=== PATIENT | male | born 1955 | race Caucasian/White ===

== ENCOUNTER → 2017-08-29 08:06 | Outpatient (CLI) | payer MEDICARE, MEDICAID, SELFPAY ==
[2017-08-29 08:35] LABS: Basophils % 0.5 % (0.1-2.0); Eosinophils # 0.2 K/mm3 (0.0-0.4); Eosinophils % 3.3 % (0.1-12.0); Hematocrit 37.9 % (42.0-52.0); Hemoglobin 12.8 g/dL (14.1-18.0); Lymphocytes # 1.7 K/mm3 (0.7-4.5); Lymphocytes % 33.1 K/mm3 (10-50); Mean Corpuscular HGB Conc 33.9 g/dL (31.8-35.4); Mean Corpuscular Hemoglobin 28.5 pg (27.0-31.2); Mean Corpuscular Volume 84.1 fl (80-94); Mean Platelet Volume 7.8 fl (7.4-10.4); Monocytes # 0.3 K/mm3 (0.1-1.0); Neutrophils % 57.1 % (37.0-80.0); Platelet Count 221 K/mm3 (142-424); Red Blood Count 4.51 M/mm3 (4.60-6.20); Red Cell Distribution Width 14.2 % (11.5-17.5); White Blood Count 5.3 K/mm3 (4.8-10.8)
[2017-08-29 09:37] LABS: Hemoglobin A1C 8.2 % (0.0-7.0)
[2017-08-29 10:21] LABS: Alanine Aminotransferase 56 U/L (12-78); Albumin Level 3.2 gm/dL (3.4-5.0); Albumin/Globulin Ratio 0.8 (1.1-1.8); Alkaline Phosphatase 71 U/L (46-116); Anion Gap 12.4 mEq/L (5-15); Aspartate Amino Transferase 60 U/L (15-37); Bilirubin,Total 0.4 mg/dL (0.2-1.0); Blood Urea Nitrogen 21 mg/dL (7-18); Calcium 9.7 mg/dL (8.5-10.1); Carbon Dioxide 29 mmol/L (21.0-32.0); Chloride 102 mmol/L (98-107); Chol/HDL Ratio 7.1 (1-3.5); Cholesterol 198 mg/dL (140-200); Creatinine,Serum 1.39 mg/dL (0.70-1.30); Estimated Glomerular Filt Rate 52 ml/min (>60); GFR (African American) 63 ML/MIN (>60); Globulin 4.2 gm/dl (1.3-3.2); Glucose 223 mg/dL (74-106); HDL Cholesterol 28 mg/dL (27-67); LDL Cholesterol 107 mg/dL (0-130); Potassium 4.4 mmoL/L (3.5-5.1); Sodium 139 mmol/L (136-145); Total Protein,Serum 7.4 gm/dL (6.4-8.2); Triglycerides 314 mg/dL (30-200); VLDL Cholesterol 63 mg/dL (0-40)
[2017-08-30 07:44] LABS: Vitamin D 25 Hydroxy 22.2 ng/mL (30.0-100.0)
== END ==
PROVIDERS: Visit Provider Nurse Practitioner Family
DX: E11.22 Type 2 diabetes mellitus with diabetic chronic kidney disease (principal); E78.5 Hyperlipidemia, unspecified; I10 Essential (primary) hypertension
CPT/HCPCS: 36415; 80053; 80061; 82652; 83036; 85025

== ENCOUNTER → 2017-08-30 08:19 | Outpatient (REF) | payer MEDICARE, MEDICAID, SELFPAY ==
[2017-08-31 09:26] LABS: Creatinine, Urine 48.9 mg/dL (Not Estab.); Microalbumin, Urine <3.0 ug/mL (Not Estab.)
== END ==
LOC: LAB 08:19
PROVIDERS: Visit Provider Nurse Practitioner Family
DX: E78.5 Hyperlipidemia, unspecified (principal); E11.22 Type 2 diabetes mellitus with diabetic chronic kidney disease; I10 Essential (primary) hypertension
CPT/HCPCS: 82043; 82570

== ENCOUNTER → 2017-11-03 11:57 | Outpatient (POV) | payer MEDICARE, MEDICAID, SELFPAY | PROVIDERS: Family Provider Nurse Practitioner Family; PCP Internal Medicine Adolescent Medicine; Visit Provider Podiatrist | DX: Z00.00 Encounter for general adult medical examination without abnormal findings (principal) ==

== ENCOUNTER → 2018-02-08 09:26 | Outpatient (POV) | payer MEDICARE, MEDICAID, SELFPAY | PROVIDERS: Visit Provider Podiatrist | DX: Z00.00 Encounter for general adult medical examination without abnormal findings (principal) ==

== ENCOUNTER → 2018-03-17 08:33 | Outpatient (CLI) | payer MEDICARE, MEDICAID, SELFPAY ==
[2018-03-17 09:15] LABS: Basophils # 0.1 K/mm3 (0-0.2); Eosinophils # 0.2 K/mm3 (0.0-0.4); Eosinophils % 3.2 % (0.1-12.0); Hematocrit 39.5 % (42.0-52.0); Hemoglobin 13.1 g/dL (14.1-18.0); Lymphocytes # 1.9 K/mm3 (0.7-4.5); Lymphocytes % 34.4 % (10-50); Mean Corpuscular HGB Conc 33.3 g/dL (31.8-35.4); Mean Corpuscular Hemoglobin 28.9 pg (27.0-31.2); Mean Platelet Volume 7.2 fl (7.4-10.4); Monocytes # 0.3 K/mm3 (0.1-1.0); Monocytes % 5.5 % (1.7-9.3); Neutrophils # 3.1 K/mm3 (1.8-7.8); Neutrophils % 55.9 % (37.0-80.0); Platelet Count 197 K/mm3 (142-424); Red Blood Count 4.54 M/mm3 (4.60-6.20); Red Cell Distribution Width 14.4 % (11.5-17.5); White Blood Count 5.5 K/mm3 (4.8-10.8)
[2018-03-17 10:03] LABS: Hemoglobin A1C 7.3 % (0.0-7.0)
[2018-03-17 10:32] LABS: Alanine Aminotransferase 60 U/L (12-78); Albumin Level 3.3 gm/dL (3.4-5.0); Albumin/Globulin Ratio 0.8 (1.1-1.8); Alkaline Phosphatase 50 U/L (46-116); Anion Gap 14.2 mEq/L (5-15); Aspartate Amino Transferase 66 U/L (15-37); Bilirubin,Total 0.5 mg/dL (0.2-1.0); Blood Urea Nitrogen 20 mg/dL (7-18); Calcium 9.3 mg/dL (8.5-10.1); Carbon Dioxide 27 mmol/L (21.0-32.0); Chloride 104 mmol/L (98-107); Chol/HDL Ratio 4.3 (1-3.5); Cholesterol 124 mg/dL (140-200); Creatinine,Serum 1.52 mg/dL (0.70-1.30); Estimated Glomerular Filt Rate 47 ml/min (>60); Ferritin 97 ng/mL (8-388); GFR (African American) 57 ML/MIN (>60); Globulin 4.1 gm/dl (1.3-3.2); Glucose 133 mg/dL (74-106); HDL Cholesterol 29 mg/dL (27-67); LDL Cholesterol 50 mg/dL (0-130); Potassium 4.2 mmoL/L (3.5-5.1); Sodium 141 mmol/L (136-145); Total Protein,Serum 7.4 gm/dL (6.4-8.2); Triglycerides 226 mg/dL (30-200); VLDL Cholesterol 45 mg/dL (0-40)
[2018-03-18 04:06] LABS: Creatinine, Urine 158.1 mg/dL (Not Estab.)
[2018-03-19 06:09] LABS: Folate 11.8 ng/mL (>3.0); Vitamin B12 808 pg/mL (232-1245)
[2018-03-19 14:00] LABS: Vitamin D 25 Hydroxy 26.4 ng/mL (30.0-100.0)
== END ==
PROVIDERS: Visit Provider Nurse Practitioner Family
DX: E11.22 Type 2 diabetes mellitus with diabetic chronic kidney disease (principal); D63.8 Anemia in other chronic diseases classified elsewhere; E55.9 Vitamin D deficiency, unspecified; E78.5 Hyperlipidemia, unspecified; Z79.4 Long term (current) use of insulin
CPT/HCPCS: 36415; 80053; 80061; 82043; 82570; 82607; 82652; 82728; 82746; 83036; 85025

== ENCOUNTER → 2019-03-11 13:16 | Outpatient (CLI) | payer MEDICARE, OTHER, SELFPAY ==
[2019-03-11 14:02] LABS: Basophils % 0.6 % (0.1-2.0); Eosinophils # 0.2 K/mm3 (0.0-0.4); Hematocrit 42.9 % (42.0-52.0); Hemoglobin 13.4 g/dL (14.1-18.0); Lymphocytes # 1.9 K/mm3 (0.7-4.5); Lymphocytes % 24.4 % (10-50); Mean Corpuscular HGB Conc 31.3 g/dL (31.8-35.4); Mean Corpuscular Hemoglobin 27.4 pg (27.0-31.2); Mean Corpuscular Volume 87.6 fl (80-94); Mean Platelet Volume 8.4 fl (7.4-10.4); Monocytes # 0.3 K/mm3 (0.1-1.0); Monocytes % 4.3 % (1.7-9.3); Neutrophils # 5.2 K/mm3 (1.8-7.8); Neutrophils % 67.7 % (37.0-80.0); Platelet Count 247 K/mm3 (142-424); Red Blood Count 4.89 M/mm3 (4.60-6.20); Red Cell Distribution Width 14.3 % (11.5-17.5); White Blood Count 7.7 K/mm3 (4.8-10.8)
[2019-03-11 15:19] LABS: Hemoglobin A1C 6.7 % (0.0-7.0)
[2019-03-11 15:20] LABS: Alanine Aminotransferase 39 U/L (12-78); Albumin Level 3.2 gm/dL (3.4-5.0); Albumin/Globulin Ratio 0.8 (1.1-1.8); Alkaline Phosphatase 43 U/L (46-116); Anion Gap 12.1 mEq/L (5-15); Aspartate Amino Transferase 45 U/L (15-37); Bilirubin,Total 0.4 mg/dL (0.2-1.0); Blood Urea Nitrogen 14 mg/dL (7-18); Calcium 8.9 mg/dL (8.5-10.1); Carbon Dioxide 28 mmol/L (21.0-32.0); Chloride 104 mmol/L (98-107); Cholesterol 137 mg/dL (140-200); Estimated Glomerular Filt Rate 56 ml/min (>60); GFR (African American) 67 ML/MIN (>60); Globulin 3.9 gm/dl (1.3-3.2); Glucose 54 mg/dL (74-106); HDL Cholesterol 34 mg/dL (27-67); LDL Cholesterol 69 mg/dL (0-130); Potassium 4.1 mmoL/L (3.5-5.1); Prostate Specific Ag Screen 0.6 ng/mL (0.0-4.0); Sodium 140 mmol/L (136-145); Total Protein,Serum 7.1 gm/dL (6.4-8.2); Triglycerides 172 mg/dL (30-200); VLDL Cholesterol 34 mg/dL (0-40)
[2019-03-12 10:32] LABS: Vitamin D 25 Hydroxy 25.6 ng/mL (30.0-100.0)
[2019-03-12 11:07] LABS: Creatinine, Urine 85.9 mg/dL (Not Estab.); Microalbumin, Urine 17.5 ug/mL (Not Estab.)
== END ==
PROVIDERS: PCP Nurse Practitioner Family; Visit Provider Nurse Practitioner Family
DX: Z12.5 Encounter for screening for malignant neoplasm of prostate (principal); N40.0 Benign prostatic hyperplasia without lower urinary tract symptoms; E11.22 Type 2 diabetes mellitus with diabetic chronic kidney disease; E78.5 Hyperlipidemia, unspecified; N18.3 Chronic kidney disease, stage 3 (moderate); E55.9 Vitamin D deficiency, unspecified; I12.9 Hypertensive chronic kidney disease with stage 1 through stage 4 chronic kidney disease, or unspecified chronic kidney disease; Z79.4 Long term (current) use of insulin
CPT/HCPCS: 36415; 80053; 80061; 82043; 82570; 82652; 83036; 85025; G0103

== ENCOUNTER → 2019-12-07 12:44 | Outpatient (CLI) | payer MEDICARE, OTHER, SELFPAY ==
[2019-12-07 13:13] LABS: Basophils # 0.1 K/mm3 (0-0.2); Basophils % 0.7 % (0.1-2.0); Eosinophils # 0.3 K/mm3 (0.0-0.4); Eosinophils % 4.5 % (0.1-12.0); Hematocrit 39.8 % (42.0-52.0); Hemoglobin 14.1 g/dL (14.1-18.0); Lymphocytes % 27.3 % (10-50); Mean Corpuscular HGB Conc 35.3 g/dL (31.8-35.4); Mean Corpuscular Hemoglobin 29.7 pg (27.0-31.2); Mean Corpuscular Volume 84.1 fl (80-94); Mean Platelet Volume 7.9 fl (7.4-10.4); Monocytes # 0.4 K/mm3 (0.1-1.0); Monocytes % 5.9 % (1.7-9.3); Neutrophils # 4.6 K/mm3 (1.8-7.8); Neutrophils % 61.6 % (37.0-80.0); Platelet Count 208 K/mm3 (142-424); Red Blood Count 4.74 M/mm3 (4.60-6.20); Red Cell Distribution Width 14.5 % (11.5-17.5); White Blood Count 7.4 K/mm3 (4.8-10.8)
[2019-12-07 13:48] LABS: Alanine Aminotransferase 39 U/L (12-78); Albumin Level 3.9 g/dl (3.5-5.0); Albumin/Globulin Ratio 1.1 (1.1-1.8); Alkaline Phosphatase 81 U/L (38-126); Anion Gap 15.1 mEq/L (5-15); Aspartate Amino Transferase 49 U/L (17-59); Bilirubin,Total 0.5 mg/dl (0.2-1.3); Blood Urea Nitrogen 26 mg/dl (9-20); Calcium 9.7 mg/dl (8.4-10.2); Carbon Dioxide 30 mmol/L (22.0-30.0); Chloride 97 mmol/L (98-107); Estimated Glomerular Filt Rate 44 ml/min (>60); GFR (African American) 53 ML/MIN (>60); Globulin 3.5 g/dL (1.3-3.2); Glucose 288 mg/dl (74-100); Potassium 5.1 mmoL/L (3.5-5.1); Sodium 137 mmol/L (136-145); Total Protein,Serum 7.4 g/dl (6.3-8.2)
[2019-12-07 14:05] LABS: 25-OH Vitamin D, Total 32.8 ng/mL (30-100)
[2019-12-07 14:26] LABS: Hemoglobin A1C 9.1 % (4.0-6.0)
[2019-12-07 14:26] LABS: Creatinine,Urine Random 61 mg/dL (Not Estab.); Microalbumin/Creatinine Ratio 36.8
== END ==
PROVIDERS: Visit Provider Nurse Practitioner Family
DX: E11.22 Type 2 diabetes mellitus with diabetic chronic kidney disease (principal); N18.3 Chronic kidney disease, stage 3 (moderate); E55.9 Vitamin D deficiency, unspecified
CPT/HCPCS: 36415; 80053; 82043; 82306; 82570; 83036; 85025

== ENCOUNTER → 2020-06-27 08:52 | Outpatient (CLI) | payer MEDICARE, OTHER, SELFPAY ==
[2020-06-27 10:26] LABS: Hemoglobin A1C 6.5 % (4.0-6.0)
[2020-06-27 13:47] LABS: Alanine Aminotransferase 31 U/L (12-78); Albumin Level 3.9 g/dl (3.5-5.0); Albumin/Globulin Ratio 1.2 (1.1-1.8); Alkaline Phosphatase 62 U/L (38-126); Anion Gap 12.9 mEq/L (5-15); Aspartate Amino Transferase 47 U/L (17-59); Bilirubin,Total 0.4 mg/dl (0.2-1.3); Blood Urea Nitrogen 25 mg/dl (9-20); Calcium 9.6 mg/dl (8.4-10.2); Carbon Dioxide 26 mmol/L (22.0-30.0); Chloride 105 mmol/L (98-107); Chol/HDL Ratio 4.6 (1-3.5); Cholesterol 123 mg/dl (140-200); Estimated Glomerular Filt Rate 44 ml/min (>60); GFR (African American) 53 ML/MIN (>60); Globulin 3.3 g/dL (1.3-3.2); Glucose 184 mg/dl (74-100); HDL Cholesterol 27 mg/dl (40-60); Potassium 4.9 mmoL/L (3.5-5.1); Sodium 139 mmol/L (136-145); Total Protein,Serum 7.2 g/dl (6.3-8.2); Triglycerides 327 mg/dl (30-150); VLDL Cholesterol 65 mg/dL (0-40)
[2020-06-27 13:58] LABS: Direct LDL Cholesterol 47.48 mg/dL (100-129)
[2020-06-27 14:17] LABS: Prostate Specific Ag Screen 0.3 ng/ml (0.0-4.0)
== END ==
PROVIDERS: Visit Provider Nurse Practitioner Family
DX: E11.22 Type 2 diabetes mellitus with diabetic chronic kidney disease (principal); I10 Essential (primary) hypertension; N40.0 Benign prostatic hyperplasia without lower urinary tract symptoms; Z12.5 Encounter for screening for malignant neoplasm of prostate; Z79.4 Long term (current) use of insulin
CPT/HCPCS: 36415; 80053; 80061; 83036; G0103

== ENCOUNTER → 2020-09-11 16:14 | Outpatient (CLI) | payer MEDICARE, OTHER, SELFPAY ==
[2020-09-11 16:25] LABS: Microscopic, Urine URINE MICROSCOPIC (MICROSCOPIC)
[2020-09-11 17:07] LABS: Appearance,Urine CLEAR (Clear); Blood, Urine 1+ (Negative); Color,Urine YELLOW (Yellow); Glucose,Urine (UA) Negative (Negative); Ketones,Urine Negative (Negative); Leukocyte Esterase,Urine 2+ (Negative); Nitrate,Urine Negative (Negative); PH,Urine 5.5 (5.0-8.5); Protein,Urine 2+ (Negative)
[2020-09-11 17:09] LABS: Bilirubin,Urine 1+ (Negative)
[2020-09-11 17:12] LABS: Bacteria,Urine 1+ /lpf; Squamous Epithelial Cell,Urine Occasional #/hpf (0-5); WBC,Urine 20-50 #/hpf (0-3)
== END ==
PROVIDERS: Visit Provider Nurse Practitioner Family
DX: N39.0 Urinary tract infection, site not specified (principal)
CPT/HCPCS: 81001; 87086; 87088; 87186

== ENCOUNTER 2020-09-13 14:48 | Inpatient (IN) | payer MEDICARE, OTHER, SELFPAY ==
[2020-09-13] VITALS (17 sets, daily range): BP systolic 108–145; BP diastolic 56–94; PULSE 68–77; RESP 16–22; TEMP 36.6–36.7; O2SAT 90–99; BMI 64.6; BMI 62.6
--- NOTE | 2020-09-13 15:17 | HMH.EDGENADL ---
ED Disposition Clinical Impression: Visual hallucinations UTI (urinary tract infection) Qualifiers: Urinary tract infection type: site unspecified Hematuria presence: without hematuria Qualified Code(s): N39.0 - Urinary tract infection, site not specified CHF (congestive heart failure) Qualifiers: Heart failure type: unspecified Heart failure chronicity: acute on chronic Qualified Code(s): I50.9 - Heart failure, unspecified Pneumonia Qualifiers: Pneumonia type: due to unspecified organism Laterality: unspecified laterality Lung location: unspecified part of lung Qualified Code(s): J18.9 - Pneumonia, unspecified organism Respiratory failure with hypoxia Qualifiers: Chronicity: acute Qualified Code(s): J96.01 - Acute respiratory failure with hypoxia Disposition: Admitted As Inpatient Condition on Discharge: Serious Referrals: Marge Brownlee APRN [Primary Care Provider] - - Critical Care Critical Care Time: No Attestation: On 09/13/20, the high probability of a clinically significant, sudden or life threatening deterioration of the following system(s) required my full and direct attention, intervention and personal management. The time I documented below is in addition to time spent performing reported procedures but includes the following listed in this critical care notation. Medical Decision Making - Medical Records Medical records reviewed: Yes: I reviewed the patient's medical records. MR Comment: Reviewed prior left heart cath and echocardiogram results, see below - Jamal Inquiry Pt receiving controlled substance: No Vital Signs: 09/13/20 14:49 09/13/20 15:01 09/13/20 15:31 Temperature 97.9 F Temperature Source Oral Pulse Rate 71 71 Pulse Rate [Left] 71 Respiratory Rate 20 20 22 Blood Pressure 127/60 141/61 H Blood Pressure [Right Arm] 128/56 L Blood Pressure Mean 69 87 Blood Pressure Mean [Right Arm] 80 Blood Pressure Source [Right Arm] Automatic Cuff Blood Pressure Position [Right Arm] Supine 02 Sat by Pulse Oximetry 94 L 94 L 99 Oxygen Delivery Method Nasal Cannula Oxygen Flow Rate (LPM) 4 09/13/20 16:27 09/13/20 16:32 09/13/20 16:35 Temperature Temperature Source Pulse Rate 70 71 70 Pulse Rate [Left] Respiratory Rate 20 18 Blood Pressure 130/65 108/77 L Blood Pressure [Right Arm] Blood Pressure Mean 86 83 Blood Pressure Mean [Right Arm] Blood Pressure Source [Right Arm] Blood Pressure Position [Right Arm] 02 Sat by Pulse Oximetry 98 96 Oxygen Delivery Method Oxygen Flow Rate (LPM) 09/13/20 17:01 Temperature Temperature Source Pulse Rate 70 Pulse Rate [Left] Respiratory Rate 18 Blood Pressure 114/59 L Blood Pressure [Right Arm] Blood Pressure Mean 77 Blood Pressure Mean [Right Arm] Blood Pressure Source [Right Arm] Blood Pressure Position [Right Arm] 02 Sat by Pulse Oximetry 94 L Oxygen Delivery Method Oxygen Flow Rate (LPM) - Lab Data Lab Results 09/13/20 14:10: NT-Pro-B Natriuret Pep 3250 H 09/13/20 14:50: WBC 14.4 H, RBC 3.74 L, Hgb 10.5 L, Hct 32.0 L, MCV 85.5, MCH 28.1, MCHC 32.9, RDW 14.7, Plt Count 262, MPV 8.6, Neut % (Auto) 87.4 H, Lymph % (Auto) 7.2 L, [place] % (Auto) 4.6, Eos % (Auto) 0.4, Baso % (Auto) 0.2, Neut # (Auto) 12.6 H, Lymph # (Auto) 1.1, [place]ill # (Auto) 0.7, Eos # (Auto) 0.1, Baso # (Auto) 0.0, Total Counted 100, Neutrophils % (Manual) 85 H, Lymphocytes % (Manual) 12, Monocytes % (Manual) 3, Platelet Estimate Normal, RBC Morphology Normal 09/13/20 14:50: Sodium 130 L, Potassium 4.9, Chloride 94 L, Carbon Dioxide 27, Anion Gap 13.9, BUN 65 H, Creatinine 2.10 H, Estimated Creat Clear 34, Estimated GFR 32 L, Est GFR ( Amer) 39 L, Glucose 380 H, Calcium 8.8, Total Bilirubin 1.1, AST 31, ALT 17, Alkaline Phosphatase 81, Troponin I 0.01, Total Protein 7.6, Albumin 3.6, Globulin 4.0 H, Albumin/Globulin Ratio 0.9 L 09/13/20 15:28: Specimen Source Right radial, O2 % 4l, ABG pH 7.37, ABG pCO2
--- NOTE | 2020-09-13 15:27 | XR_ITS ---
PROCEDURE INFORMATION: Exam: XR Chest Exam date and time: 09/13/2020 3:27 PM Age: 64 years old Clinical indication: Shortness of breath; Patient HX: SOA, hallucinations. Morbid obesity. Best images possible TECHNIQUE: Imaging protocol: XR of the chest. Views: 1 view. COMPARISON: CR CXR CHEST(2 VIEWS-NOT PORTABLE) 06/25/2016 12:29 PM FINDINGS: Lungs: Mild opacities in the mid lung regions and both bases may represent atelectasis or pneumonia. Pleural spaces: Unremarkable. No pleural effusion. No pneumothorax. Heart/Mediastinum: Cardiomegaly and vascular prominence may represent interstitial edema or or mild congestive heart failure.. Bones/joints: Unremarkable. IMPRESSION: 1. Cardiomegaly and vascular prominence may represent interstitial edema or or mild congestive heart failure.. 2. Mild opacities in the mid lung regions and both bases may represent atelectasis or pneumonia.
--- NOTE | 2020-09-13 15:28 | CT_ITS ---
PROCEDURE INFORMATION: Exam: CT Head Without Contrast Exam date and time: 09/13/2020 3:28 PM Age: 64 years old Clinical indication: Altered mental status/memory loss; Other: Altered mental status, confusion; Patient HX: Very large patient with confusion. Bedfast. ; Additional info: AMS TECHNIQUE: Imaging protocol: Computed tomography of the head without contrast. 3D rendering (Not supervised by radiologist): MIP and/or 3D reconstructed images were created by the technologist. Radiation optimization: All CT scans at this facility use at least one of these dose optimization techniques: automated exposure control; mA and/or kV adjustment per patient size (includes targeted exams where dose is matched to clinical indication); or iterative reconstruction. COMPARISON: No relevant prior studies available. FINDINGS: Brain: No acute intracranial hemorrhage.. There is mild diffuse heterogeneity of the white matter attenuation, consistent with chronic white matter ischemic changes. Mild cerebral atrophy Cerebral ventricles: No ventriculomegaly. Paranasal sinuses: Opacities in the maxillary sinuses and ethmoid sinuses Mastoid air cells: Visualized mastoid air cells are well aerated. Orbital cavity: Prosthesis for the left globe Bones/joints: Unremarkable. No acute fracture. Soft tissues: Unremarkable. IMPRESSION: No acute intracranial hemorrhage..
[2020-09-13 15:38] LABS: Basophils % 0.2 % (0.1-2.0); Eosinophils # 0.1 K/mm3 (0.0-0.4); Eosinophils % 0.4 % (0.1-12.0); Hemoglobin 10.5 g/dL (14.1-18.0); Lymphocytes # 1.1 K/mm3 (0.7-4.5); Lymphocytes % 7.2 % (10-50); Mean Corpuscular HGB Conc 32.9 g/dL (31.8-35.4); Mean Corpuscular Hemoglobin 28.1 pg (27.0-31.2); Mean Corpuscular Volume 85.5 fl (80-94); Mean Platelet Volume 8.6 fl (7.4-10.4); Monocytes # 0.7 K/mm3 (0.1-1.0); Monocytes % 4.6 % (1.7-9.3); Neutrophils # 12.6 K/mm3 (1.8-7.8); Neutrophils % 87.4 % (37.0-80.0); Platelet Count 262 K/mm3 (142-424); Red Blood Count 3.74 M/mm3 (4.60-6.20); Red Cell Distribution Width 14.7 % (11.5-17.5); White Blood Count 14.4 K/mm3 (4.8-10.8)
[2020-09-13 15:40] LABS: MANUAL DIFFERENTIAL MANUAL DIFFERENTIAL (MANUAL DIFF)
[2020-09-13 15:42] LABS: Alanine Aminotransferase 17 U/L (12-78); Albumin Level 3.6 g/dl (3.5-5.0); Albumin/Globulin Ratio 0.9 (1.1-1.8); Alkaline Phosphatase 81 U/L (38-126); Anion Gap 13.9 mEq/L (5-15); Aspartate Amino Transferase 31 U/L (17-59); Bilirubin,Total 1.1 mg/dl (0.2-1.3); Blood Urea Nitrogen 65 mg/dl (9-20); Calcium 8.8 mg/dl (8.4-10.2); Carbon Dioxide 27 mmol/L (22.0-30.0); Chloride 94 mmol/L (98-107); Creatinine Clearance Estimated 34 mL/min (50-200); Estimated Glomerular Filt Rate 32 ml/min (>60); GFR (African American) 39 ML/MIN (>60); Glucose 380 mg/dl (74-100); Potassium 4.9 mmoL/L (3.5-5.1); Sodium 130 mmol/L (136-145); Total Protein,Serum 7.6 g/dl (6.3-8.2)
[2020-09-13 16:07] LABS: Troponin I 0.01 ng/ml (0.00-0.034)
[2020-09-13 16:15] LABS: Lymphocytes % 12 % (10-50); Monocytes % 3 % (2-9); Neutrophils % 85 % (42-76); Platelet Estimate Normal; RBC Morphology Normal; Total Cells Counted 100
[2020-09-13 16:21] LABS: ABG Base Excess 0.2 mmol/L (-2.4-2.3); ABG HCO3 25.5 mmhg (22.0-26.0); ABG Oxygen Saturation 93 % (90-100); ABG PCO2 45.7 mmhg (35.0-45.0); ABG PH 7.37 mmol/L (7.35-7.45); ABG PO2 68.9 mmhg (80-100); ABG TCO2 26.9 mmhg (23-27)
[2020-09-13 16:22] LABS: Allen's Test Acceptable; Oxygen 4L %; Source Right Radial
--- NOTE | 2020-09-13 17:05 | ECG_ITS ---
APPROVED REPORT Exam: Resting ECG HR:66 bpm ECG Measurements Heart Rate 66 AXES NC 144 P 55 QRSd 108 QRS -13 QT 440 T 71 QTc 461 Conclusion Normal sinus rhythm Nonspecific ST abnormality Abnormal ECG Electronically signed by : Scott Camarillo, 09/15/2020 22:04:48
[2020-09-13 17:33] LABS: NT Pro Brain Natriuretic Pep. 3250 pg/mL (0-125)
[2020-09-13 17:34] LABS: Microscopic, Urine URINE MICROSCOPIC (MICROSCOPIC)
[2020-09-13 17:42] LABS: Appearance,Urine CLEAR (Clear); Bilirubin,Urine Negative (Negative); Blood, Urine Negative (Negative); Color,Urine YELLOW (Yellow); Glucose,Urine (UA) 2+ (Negative); Ketones,Urine Negative (Negative); Leukocyte Esterase,Urine Negative (Negative); Nitrate,Urine Negative (Negative); PH,Urine 5.5 (5.0-8.5); Protein,Urine TRACE (Negative)
[2020-09-13 17:48] LABS: Amorphous Sediment,Urine 2+ /lpf; Squamous Epithelial Cell,Urine Occasional #/hpf (0-5); WBC,Urine Occasional #/hpf (0-3)
--- NOTE | 2020-09-13 18:19 | PC.NURSE ---
called lab to check on time left for covid swab. gadiel from lab estimated time left 45 min
[2020-09-13 19:51] LABS: Troponin I 0.01 ng/ml (0.00-0.034)
--- NOTE | 2020-09-13 20:24 | PC.NURSE ---
PT ARRIVED TO FLOOR VIA STRETCHER FROM ED W/STAFF AT 2023
[2020-09-13 21:14] LABS: POC Glucose,Bedside 335 (70-110)
[2020-09-13 22:20] LABS: Troponin I < 0.01 ng/ml (0.00-0.034)
[2020-09-14] VITALS (10 sets, daily range): BP systolic 105–153; BP diastolic 58–71; PULSE 60–71; RESP 18–24; TEMP 36.6–36.9; O2SAT 80–94; BMI 62.4
--- NOTE | 2020-09-14 00:25 | PC.NURSE ---
Report received from Nando Brown RN
--- NOTE | 2020-09-14 01:49 | PC.NURSE ---
Attempted to titrate O2 NC down. At 5 L O2 NC. Pt sats were 90%. Notified RT. RT placed venti mask @ 40%. Sats currently 90%. MD Camarillo consulted for further orders. New orders received. After 1 Hr on Vent, obtain ABG. If CO2 is greater than 50, wean O2 to 2L NC for sats of 85%.
[2020-09-14 02:34] LABS: ABG Base Excess 1.8 mmol/L (-2.4-2.3); ABG HCO3 26.9 mmhg (22.0-26.0); ABG Oxygen Saturation 92 % (90-100); ABG PCO2 46.1 mmhg (35.0-45.0); ABG PH 7.38 mmol/L (7.35-7.45); ABG TCO2 28.3 mmhg (23-27)
[2020-09-14 02:35] LABS: Allen's Test Y; Oxygen 40 %; Source R/R
--- NOTE | 2020-09-14 04:29 | PC.NURSE ---
No acute changes at this time. Pt has c/o discomfort in bed. Pt repositioned with assist x4. F/C draining to bedside with beena urine. Pt remains on 40% venti mask. VSS at this time. Will continue to monitor.
[2020-09-14 06:06] LABS: POC Glucose,Bedside 293 (70-110)
--- NOTE | 2020-09-14 07:07 | P.CONPHA_ITS ---
[facility] Pharmacy VTE Monitoring - Patient Demographics Admission date: 09/13/20 Report Date: 09/14/20 Time: 07:07 Allergies/Adverse Reactions: Patient Allergies gemfibrozil Allergy (Intermediate, Verified 11/22/18 08:22) I-RASH, NAUSEA, HIVES Height: 1.73 m Weight: 186.7 kg Patient Problems: Current Active Problems UTI (urinary tract infection) (Acute) CHF (congestive heart failure) (Acute) Pneumonia (Acute) Respiratory failure with hypoxia (Acute) Visual hallucinations (Acute) - VTE Risk Labs: VTE Related Lab Results Hgb 10.5 g/dL (14.1-18.0) L 09/13/20 14:50 Hct 32.0 % (42.0-52.0) L 09/13/20 14:50 Plt Count 262 K/mm3 (142-424) 09/13/20 14:50 BUN 65 mg/dl (9-20) H 09/13/20 14:50 Creatinine 2.10 mg/dl (0.66-1.25) H 09/13/20 14:50 Estimated Creat Clear 34 mL/min (50-200) 09/13/20 14:50 Was VTE Risk Assessment Performed: Yes VTE Score: 8 VTE Risk Level: Moderate Risk - Prophylaxis VTE Prophylaxis Ordered?: Yes Types of VTE Prophylaxis: TEDS Knee High Location of Applied Device: Bilateral Lower Extremeties
--- NOTE | 2020-09-14 08:01 | HMH.HP ---
*Admission Date: 09/13/20 *Chief complaint: Weakness/mental status changes *History of present illness: 64-year-old white male who suffers from super?morbid obesity with a BMI of greater than 60, who was recently placed on Cipro for UTI recently. Over the last 24 hours, after about 3 days of Cipro he has become increasingly weak, unable to move himself around at home and also has had episodes of hallucinations and confusion. Came to the emergency department where he was found to have clinical and laboratory evidence of CHF with elevated BNP, wheezing and crackles in his lungs and also be significantly weak and unable to move under his own power out of the bed. Admitted to hospital for IV antibiotics, as his chest x-ray showed infiltrates and the initial thought was Cipro might be causing his hallucinations as there are case reports in the literature about this. He was also admitted for diuresis, further evaluation of CHF issues. [facility] History I have reviewed the patient's past medical history: Yes Medical History: Reports:: Congestive Heart Failure, Chronic Obstructive Pulmonary Disease (COPD), Coronary Artery Disease, Diabetes Mellitus Type 2, Hyperlipidemia, Hypertension, Lung Disease Denies:: Cancer, Diabetes Mellitus Type 1, Internal Pacemaker, MRSA, Seizures *Have you ever received a pneumonia vaccine?: Yes *Have you received a flu vaccine this season?: No Other Medical History: Reports: Arthritis. Denies: Blood Transfusion Reaction Laterality Cases: Bilateral: Other Other Surgeries: Yes: Colonoscopy, Other. No: Pacemaker - *Social History Smoking Status: Former smoker Tobacco Type: cigarettes # Packs/Day (cigarettes): 1 #Yrs smoked (if former smoker): 35 Smoking End Date: about a month ago. Alcohol Intake: never Alcohol Intake Frequency:: holidays/special occasions only *Occupational Status:: unemployed Household Members: family *Travel in the last 8 weeks: None Family Hx:: Cancer, Diabetes, Hyperlipidemia, Hypertension Review of Systems - Review of Systems Review of systems:: pertinent systems reviewed and negative unless documented below Patient feels better than yesterday. Continues to be very weak. reports no hallucinations. Dyspnea with exertion noted. No baseline shortness of air. GI and review of systems negative although patient wishes Singh catheter to be removed. - *Neurologic Reports confusion, Reports weakness, Denies headache(s) Meds Home Medications Medication Instructions Recorded Confirmed Type amlodipine 10 mg tablet 10 mg PO DAILY 09/26/17 09/14/20 History carvedilol 25 mg tablet 25 mg PO BID 09/26/17 09/13/20 History fenofibrate nanocrystallized 145 145 mg PO DAILY 09/26/17 09/14/20 History mg tablet loratadine 10 mg capsule 10 mg PO DAILY 09/26/17 09/14/20 History omeprazole 40 mg capsule,delayed 40 mg PO DAILY 09/26/17 09/14/20 History release rosuvastatin 40 mg tablet 40 mg PO DAILY 09/26/17 09/14/20 History spironolactone 25 mg tablet 25 mg PO BID 09/26/17 09/13/20 History tamsulosin 0.4 mg capsule 0.4 mg PO DAILY 09/26/17 09/14/20 History dulaglutide 1.5 mg/0.5 mL 1.5 mg SQ WEEKLY 11/22/18 09/14/20 History subcutaneous pen injector Albuterol Sulfate [Proair Hfa] 8.5 gm IH Q6H PRN 09/13/20 09/13/20 History Cholecalciferol (Vitamin D3) 1,000 unit PO DAILY 09/13/20 09/13/20 History [Vitamin D3 1,000 Unit Tab] Ciprofloxacin HCl [Ciprofloxacin 250 mg PO BID 09/13/20 09/13/20 History 250mg Tab] Cyanocobalamin (Vitamin B-12) 1,000 mcg PO DAILY 09/13/20 09/13/20 History [Vitamin B-12] Fluticasone/Umeclidin/Vilanter 1 each IH DAILY 09/13/20 09/13/20 History [Trelegy Ellipta 100-62.5-25] Furosemide [Lasix 40mg tab] 40 mg PO BID 09/13/20 09/13/20 History Insulin NPH Hum/Reg Insulin Hm 145 unit SQ BID 09/13/20 09/13/20 History [Humulin 70/30 Insulin 100 Units/mL 10mL Vial] [place]-3 Acid Ethyl Esters [Lovaza] 2 gm PO BID 09/13/20 09/13/20 History All
[2020-09-14 09:01] LABS: Basophils # 0.2 K/mm3 (0-0.2); Basophils % 1.6 % (0.1-2.0); Eosinophils # 0.1 K/mm3 (0.0-0.4); Eosinophils % 0.7 % (0.1-12.0); Hematocrit 26.2 % (42.0-52.0); Hemoglobin 10.5 g/dL (14.1-18.0); Lymphocytes # 1.4 K/mm3 (0.7-4.5); Lymphocytes % 10.3 % (10-50); Mean Corpuscular Hemoglobin 28.5 pg (27.0-31.2); Mean Platelet Volume 17.6 fl (7.4-10.4); Monocytes # 0.8 K/mm3 (0.1-1.0); Neutrophils # 10.8 K/mm3 (1.8-7.8); Neutrophils % 81.4 % (37.0-80.0); Platelet Count 158 K/mm3 (142-424); Red Blood Count 3.69 M/mm3 (4.60-6.20); White Blood Count 13.3 K/mm3 (4.8-10.8)
[2020-09-14 09:02] LABS: Red Cell Distribution Width 15.4 % (11.5-17.5)
[2020-09-14 09:03] LABS: Chloride 94 mmol/L (98-107); Sodium 132 mmol/L (136-145)
[2020-09-14 09:04] LABS: Potassium 4.4 mmoL/L (3.5-5.1)
[2020-09-14 09:07] LABS: Anion Gap 11.4 mEq/L (5-15); Blood Urea Nitrogen 60 mg/dl (9-20); Calcium 8.7 mg/dl (8.4-10.2); Carbon Dioxide 31 mmol/L (22.0-30.0); Creatinine Clearance Estimated 33 mL/min (50-200); Estimated Glomerular Filt Rate 30 ml/min (>60); GFR (African American) 37 ML/MIN (>60); Glucose 298 mg/dl (74-100)
--- NOTE | 2020-09-14 10:37 | HMH.PTEV ---
Physical Therapy Evaluation Rehab PT IP Evaluation Start: 09/14/20 08:00 Freq: ONCE Status: Active Protocol: Document 09/14/20 10:32 [place] (Rec: 09/14/20 10:37 KM [id number]) Subjective/History History History 64-year-old white male who suffers from super?morbid obesity with a BMI of greater than 60, who was recently placed on Cipro for UTI recently. Over the last 24 hours, after about 3 days of Cipro he has become increasingly weak, unable to move himself around at home and also has had episodes of hallucinations and confusion. - copied from H&P Subjective Subjective Pt reports he is SOA and feels very weak - at first pt did not wish to participate but encouragement from prompted pt to participate - pt's reports pt use elctric mobility device at home and was only transferring as ambulation Rehab PT IP Eval Objective Appearance Patient Behavior Appropriate,Fatigued Patient Orientation Person,Place,Time Difficulty following instructions none Speech Pattern Appropriate Ambulation Patient Able to Ambulate No Balance Ability to Arise Unable Sitting Balance Leans or slides in chair Dynamic Sitting Balance Ability Fair Transfers Bed Transfer Ability Moderate x 2 (50% assist) Rehab PT IP prob,goals,plan Problems Date of Evaluation: 09/14/20 PT IP Problems Bed Mobility,Transfers,Gait, Self care,Safety Rehab Potential Rehab Potential Poor Equipment Needs Assistive Devices Standard Walker,Wheelchair Plan PT Intervention Plan Bed Mobility,Transfers,Gait, Therapeutic Exercise PT Plan Frequency BID Duration LOS Discharge Goals Bed Transfer Ability Moderate x 2 (50% assist) Discharge Plan PT Discharge Plan Pt will need skilled therapy to allow return to OF of transfers, minimal ambulation and improved self care G -code Required Yes Eval Complexity Eval Charge Codes
--- NOTE | 2020-09-14 11:00 | HMH.OTEV ---
OT Inpatient Evaluation Rehab OT IP Evaluation Start: 09/14/20 08:00 Freq: ONCE Status: Complete Protocol: Document 09/14/20 10:54 [place] (Rec: 09/14/20 10:59 [place] [id number]) Rehab OT IP Assessment Subjective History Pt oriented x 3 on arrival. Pt agreeable to engage in therapy evaluation. Pt was admitted via ED on 09/13/20 due to visual halucinations and weakness. Pt has a past medical history of CHF, COPD, CAD, DM Type 2, Hyperlipdemia, HTN, and lung disease. Pt reports prior to hosptial admission he lived at home with his . Pt was able to make small transfers from surface to surface or surface to wheelchair. Pt claims he required assistance with dressing and showering. Pt was dependent upon for all IADLs. Subjective I don't know if I can do it. Objective Patient Orientation Person,Place,Birthday Upper Extremity Gross ROM WFL Bed Mobility bed mobility-scooting,bed mobility - supine/sit,bed mobility - rolling Assist Level Moderate x 2 (50% assist) Rehab OT IP prob,goals,plan Problems Date of Evaluation: 09/14/20 OT IP Problems Bed Mobility,Transfers,Gait, Balance,Self care,Safety Rehab Potential Rehab Potential Good Equipment Needs Assistive Devices Rolling / Wheeled Walker Plan OT intervention Plan Bed Mobility,Transfers,Gait, Balance,Self care,Safety, Therapeutic Exercise OT Plan Frequency BID Duration LOS Discharge Goals Bed Mobility Ability Assistance x1 Sit to Stand Chair Transfer Ability Minimal x 2 (25% assist) Chair Transfer Ability Minimal x 2 (25% assist) Chair Transfer Technique Sit to/from Ambulatory Chair Transfer Assistive Devices Rolling Walker Feeding Ability Assist with Tray Set Up Lower Body Dressing Ability Assistance X1 Upper Body Dressing Ability Assistance X1 Bathing Ability Assistance x1 Performing Toilet Hygiene Ability Assistance X1 Overall Commode/Toilet Transfer Ability Assistance x1 Commode/Toilet Transfer Technique Sit to/from Am
--- NOTE | 2020-09-14 11:01 | HMH.PHAINT ---
MEDICATION RECONCILIATION COMPLETED ON PATIENT USING EXTERNAL FILL HISTORY FROM PHARMACY AND PATIENT INTERVIEW RE:LAS[facility]. PATIENT STATES HE ONLY TAKES NEEDED FOR EDEMA. -ANNIE SALMERON, PHARMD
[2020-09-14 12:22] LABS: POC Glucose,Bedside 306 (70-110)
[2020-09-14 17:04] LABS: POC Glucose,Bedside 271 (70-110)
--- NOTE | 2020-09-14 19:28 | PC.NURSE ---
PT IS RESTING IN BED WITH FAMILY IN THE ROOM. PT STATES HE FEELS MUCH BETTER SINCE THE CATHETER WAS REMOVED. PT HAS BEEN USING THE URINAL TO VOID BUT HAS NEEDED ASSISTANCE. PT ATTEMPTED TO WORK WITH PHYSICAL THERAPY BUT BECAME FOR SOA WHILE SITTING UP IN THE BED. PT REQUIRES 2 ASSIST TO REPOSITION IN THE BED. O2 SATURATION 90-93% ON 4 L NC. LUNG SOUNDS DIMINISHED. ABDOMEN SOFT/OBESE/NON TENDER WITH HYPOACTIVE BOWEL SOUNDS. EDEMA NOTED TO BLE. UNABLE TO SEE OUT OF HIS LEFT EYE DUE TO AN INJURY YEARS AGO. EATING AND DRINKING WELL. WILL CONTINUE TO MONITOR.
[2020-09-14 21:55] LABS: POC Glucose,Bedside 320 (70-110)
[2020-09-15] VITALS (13 sets, daily range): BP systolic 125–149; BP diastolic 62–70; PULSE 60–78; RESP 16–20; TEMP 36.2–37.4; O2SAT 85–94; BMI 62.9
--- NOTE | 2020-09-15 02:22 | PC.NURSE ---
shift summary pt is alert and oriented X4. lung sounds are diminished with sats maintained 90-94% on 4L via NC. pt has rested comfortably tonight with family at bedside. pt requires assistance X2 to reposition in bed. pt voids per bedside urinal, urine is clear and yellow in color. pt denies any pain, nausea, or vomiting. pt had one bm that was liquid. no acute changes will continue to monitor.
[2020-09-15 05:34] LABS: POC Glucose,Bedside 251 (70-110)
--- NOTE | 2020-09-15 06:26 | SW/DCPLANNER ---
Addendum entered by Arminda Foy 09/16/20 10:17: PATIENT DISCHARGING TO [facility] TODAY... SKILLED UNDER HIS MEDICARE BENEFIT.. Addendum entered by Arminda Foy 09/15/20 11:44: PATIENT WAS ACCEPTED TO [facility] IN [place] AND I HAVE LET DR MURRAY AND TARA KNOW... DAUGHTER WAS AT BEDSIDE AND SHE AND PATIENT AGREED WITH THE PLAN... MAY BE ABLE TO DISCHARGE THERE [facility].. Addendum entered by Arminda Foy 09/15/20 09:49: AFTER ROUNDING WITH DR PACHECO THIS MORNING HE DISCUSSED GOING FOR SKILLED REHAB AGAIN AFTER DR MURRAY MENTIONED IT YESTERDAY DURING ROUNDS AND I WENT IN TO TALK ABOUT DISCHARGE PLANNING ALSO... HE WAS ADAMANT YESTERDAY HE WAS GOING HOME.. HE HAS STATED NOW HE MAY GO JUST FOR SHORT TERM BUT DIDN'T WANT TO GO TO [place]... I HAVE REACHED OUT TO [facility] IN [place] AND THEY ARE INTERESTED....IF THEY ACCEPT PATIENT HE WILL DISCHARGE SOON, POSSIBLY [facility] OR THURS... WAITING TO HEAR BACK AND WILL LET HIM AND HIS DAUGHTER KNOW.... Original Note: COLLABORATED WITH THIS PATIENT TODAY REGARDING DISCHARGE PLANNING: WHEN DR MURRAY MADE ROUNDS HE REQUESTED MR CHAVEZ GO SOMEWHERE FOR SOME REHAB SERVICES BUT HE IS ADAMANT HE WANTS TO GO HOME, HE STATED HE HAS A DAUGHTER AND 2 GRANDCHILDREN THAT LIVE WITH HIM...THE BIGGEST OBSTACLE IN GETTING HIM PLACED IF HE WOULD AGREE TO GO IS HIS WEIGHT... HE IS WELL OVER 400 LBS.. IF PATIENT SHOULD CHANGE HIS MIND, I WILL TRY TO HELP FIND HIM A REHAB BED BUT I CAN NOT PROMISE IT WILL BE LOCALLY...WAITING UNTIL MD MAKES ROUNDS TODAY TO SPEAK WITH HIM AGAIN...
[2020-09-15 07:16] LABS: Basophils % 0.3 % (0.1-2.0); Eosinophils # 0.3 K/mm3 (0.0-0.4); Eosinophils % 2.4 % (0.1-12.0); Hematocrit 33.9 % (42.0-52.0); Lymphocytes # 1.6 K/mm3 (0.7-4.5); Lymphocytes % 13.5 % (10-50); Mean Corpuscular HGB Conc 32.4 g/dL (31.8-35.4); Mean Corpuscular Hemoglobin 27.8 pg (27.0-31.2); Mean Corpuscular Volume 85.7 fl (80-94); Mean Platelet Volume 7.5 fl (7.4-10.4); Monocytes # 0.7 K/mm3 (0.1-1.0); Monocytes % 5.4 % (1.7-9.3); Neutrophils # 9.4 K/mm3 (1.8-7.8); Neutrophils % 78.4 % (37.0-80.0); Platelet Count 320 K/mm3 (142-424); Red Blood Count 3.95 M/mm3 (4.60-6.20); Red Cell Distribution Width 14.8 % (11.5-17.5)
[2020-09-15 07:21] LABS: Chloride 96 mmol/L (98-107); Potassium 4.5 mmoL/L (3.5-5.1); Sodium 135 mmol/L (136-145)
[2020-09-15 07:24] LABS: Alanine Aminotransferase 13 U/L (12-78); Albumin Level 3.4 g/dl (3.5-5.0); Albumin/Globulin Ratio 0.8 (1.1-1.8); Alkaline Phosphatase 79 U/L (38-126); Anion Gap 9.5 mEq/L (5-15); Aspartate Amino Transferase 25 U/L (17-59); Bilirubin,Total 0.6 mg/dl (0.2-1.3); Blood Urea Nitrogen 59 mg/dl (9-20); Calcium 8.8 mg/dl (8.4-10.2); Carbon Dioxide 34 mmol/L (22.0-30.0); Creatinine Clearance Estimated 40 mL/min (50-200); Estimated Glomerular Filt Rate 38 ml/min (>60); GFR (African American) 46 ML/MIN (>60); Globulin 4.1 g/dL (1.3-3.2); Glucose 264 mg/dl (74-100); Total Protein,Serum 7.5 g/dl (6.3-8.2)
--- NOTE | 2020-09-15 08:43 | HMH.ACPN2 ---
Internal Medicine - PN: Subj *Date: 09/15/20 *Time: 08:43 Interval history: Medically stable overnight. Afebrile. Tolerating 4 L nasal cannula. Worked with physical therapy yesterday, able to get up to bedside. Still quite debilitated. Extensive discussion this morning about placement versus going home. Family at bedside during rounds. Exam Vital signs and Labs for Last 24 Hours: Temp Pulse Resp BP Pulse Ox 98.6 F 64 18 130/62 89 L 09/15/20 03:52 09/15/20 06:10 09/15/20 03:52 09/15/20 03:52 09/15/20 06:10 Laboratory Results - last 24 hr 09/14/20 08:48: WBC 13.3 H, RBC 3.69 L, Hgb 10.5 L, Hct 26.2 L, MCV 71.0 L, MCH 28.5, MCHC 35.0, RDW 15.4, Plt Count 158 D, MPV 17.6 H, Neut % (Auto) 81.4 H, Lymph % (Auto) 10.3, Emanuel % (Auto) 6.0, Eos % (Auto) 0.7, Baso % (Auto) 1.6, Neut # (Auto) 10.8 H, Lymph # (Auto) 1.4, Emanuel # (Auto) 0.8, Eos # (Auto) 0.1, Baso # (Auto) 0.2 09/14/20 08:48: Sodium 132 L, Potassium 4.4, Chloride 94 L, Carbon Dioxide 31 H, Anion Gap 11.4, BUN 60 H, Creatinine 2.20 H, Estimated Creat Clear 33, Estimated GFR 30 L, Est GFR ( Amer) 37 L, Glucose 298 H D, Calcium 8.7 09/14/20 12:13: POC Glucose 306 H* 09/14/20 16:56: POC Glucose 271 H 09/14/20 21:20: POC Glucose 320 H* 09/15/20 05:09: POC Glucose 251 H 09/15/20 07:04: WBC 12.0 H, RBC 3.95 L, Hgb 11.0 L, Hct 33.9 L, MCV 85.7, MCH 27.8, MCHC 32.4, RDW 14.8, Plt Count 320 D, MPV 7.5, Neut % (Auto) 78.4, Lymph % (Auto) 13.5, Emanuel % (Auto) 5.4, Eos % (Auto) 2.4, Baso % (Auto) 0.3, Neut # (Auto) 9.4 H, Lymph # (Auto) 1.6, Emanuel # (Auto) 0.7, Eos # (Auto) 0.3, Baso # (Auto) 0.0 09/15/20 07:04: Sodium 135 L, Potassium 4.5, Chloride 96 L, Carbon Dioxide 34 H, Anion Gap 9.5, BUN 59 H, Creatinine 1.80 H, Estimated Creat Clear 40, Estimated GFR 38 L, Est GFR ( Amer) 46 L D, Glucose 264 H, Calcium 8.8, Total Bilirubin 0.6, AST 25, ALT 13, Alkaline Phosphatase 79, Total Protein 7.5, Albumin 3.4 L, Globulin 4.1 H, Albumin/Globulin Ratio 0.8 L I & O for Last 24 hours: Intake & Output 09/12/20 09/13/20 09/14/20 09/15/20 23:59 23:59 23:59 23:59 Intake Total 1320 / 1560 360 / 360 Output Total 1200 / 1200 2650 / 3050 1000 / 1000 Balance -1200 / -720 -1330 / -1490 -640 / -640 Weight 187.6 kg 187 kg 188.4 kg Microbiology Reports for the Last 24 Hours: Microbiology 09/14/20 17:40 Sputum - Expectorated Sputum Gram Stain - Final Narrative: - Constitutional no acute distress, morbidly obese; Obesity limits accurate physical exam and significantly contributes to his morbidity. - *Routine HEENT Exam Head: Present: normocephalic Eye: Present: EOMI, PERRL ENT: Present: mucous membranes moist - *Routine Neck Exam Present: supple. Absent: lymphadenopathy - *Routine Respiratory Exam Present: rhonchi, wheezes - *Routine Cardiovascular Exam Present: RRR - *Routine Abdominal Exam Present: soft, normoactive bowel sounds, obese. Absent: tenderness - *Routine Extremities Exam Absent: cyanosis, clubbing, edema - *Routine Skin Exam Present: warm. Absent: rash - *Routine Neurological Exam Present: alert, oriented X3; Significant global weakness. No focal deficits. Cranial nerves intact Assessment and Plan (1) CHF (congestive heart failure) Status: Acute Qualifiers: Heart failure type: unspecified Heart failure chronicity: acute on chronic Qualified Code(s): I50.9 - Heart failure, unspecified Category: Medical Code(s): I50.9 - Heart failure, unspecified (2) Pneumonia Status: Acute Qualifiers: Pneumonia type: due to unspecified organism Laterality: unspecified laterality Lung location: unspecified part of lung Qualified Code(s): J18.9 - Pneumonia, unspecified organism Category: Medical Code(s): J18.9 - Pneumonia, unspecified organism (3) Respiratory failure with hypoxia Status: Acute Qualifiers: Chronicity: acute Qualified Code(s): J96.01 - Acute respiratory failu
[2020-09-15 11:19] LABS: POC Glucose,Bedside 284 (70-110)
[2020-09-15 16:02] LABS: POC Glucose,Bedside 328 (70-110)
--- NOTE | 2020-09-15 18:41 | PC.NURSE ---
No acute changes this afternoon. VSS. CB in reach.
[2020-09-15 20:47] LABS: POC Glucose,Bedside 331 (70-110)
--- NOTE | 2020-09-15 21:25 | PC.NURSE ---
Yamilex Woodruff from Lab called and stated that Patient had positive blood cultures Fram negative rods Enterobacteriacae, Escherichia coli, Per PCR KPC NOT detected.
[2020-09-16] VITALS (7 sets, daily range): BP systolic 131–145; BP diastolic 66–75; PULSE 58–78; RESP 17–20; TEMP 36.5–37.1; O2SAT 92–98
--- NOTE | 2020-09-16 04:15 | PC.NURSE ---
Pt is oriented time four. Patient admitted for CHF exacerbation PNA. Patient is on 2 L n/c with SpO2 WLD this shift. Patient frequently requested pain medication, gave 650 mg Tylenol times two. Patient requires a lift, however, have not utilized this shift as 4 people were sufficent to move and reposition patient. Will continue to monitor for any acute changes.
[2020-09-16 06:58] LABS: Basophils % 0.4 % (0.1-2.0); Eosinophils # 0.3 K/mm3 (0.0-0.4); Eosinophils % 2.8 % (0.1-12.0); Hematocrit 34.8 % (42.0-52.0); Hemoglobin 11.2 g/dL (14.1-18.0); Lymphocytes # 1.6 K/mm3 (0.7-4.5); Lymphocytes % 16.9 % (10-50); Mean Corpuscular HGB Conc 32.1 g/dL (31.8-35.4); Mean Corpuscular Hemoglobin 27.8 pg (27.0-31.2); Mean Corpuscular Volume 86.5 fl (80-94); Mean Platelet Volume 7.4 fl (7.4-10.4); Monocytes # 0.6 K/mm3 (0.1-1.0); Monocytes % 6.4 % (1.7-9.3); Neutrophils # 7.2 K/mm3 (1.8-7.8); Neutrophils % 73.6 % (37.0-80.0); Platelet Count 366 K/mm3 (142-424); Red Blood Count 4.02 M/mm3 (4.60-6.20); Red Cell Distribution Width 14.7 % (11.5-17.5); White Blood Count 9.8 K/mm3 (4.8-10.8)
[2020-09-16 07:03] LABS: POC Glucose,Bedside 321 (70-110)
[2020-09-16 07:03] LABS: Chloride 93 mmol/L (98-107); Potassium 4.6 mmoL/L (3.5-5.1); Sodium 135 mmol/L (136-145)
[2020-09-16 07:05] LABS: Alanine Aminotransferase 11 U/L (12-78); Aspartate Amino Transferase 22 U/L (17-59); Blood Urea Nitrogen 53 mg/dl (9-20); Creatinine Clearance Estimated 38 mL/min (50-200); Estimated Glomerular Filt Rate 36 ml/min (>60); GFR (African American) 43 ML/MIN (>60)
[2020-09-16 07:06] LABS: Albumin Level 3.4 g/dl (3.5-5.0); Albumin/Globulin Ratio 0.8 (1.1-1.8); Alkaline Phosphatase 94 U/L (38-126); Anion Gap 10.6 mEq/L (5-15); Bilirubin,Total 0.5 mg/dl (0.2-1.3); Calcium 9.3 mg/dl (8.4-10.2); Carbon Dioxide 36 mmol/L (22.0-30.0); Globulin 4.1 g/dL (1.3-3.2); Glucose 326 mg/dl (74-100); Magnesium 2.1 mg/dl (1.6-2.3); Total Protein,Serum 7.5 g/dl (6.3-8.2)
--- NOTE | 2020-09-16 08:58 | HMH.DCSUM ---
General - General Admission date:: 09/13/20 Discharge date: 09/16/20 HPI HPI: 64-year-old white male who suffers from super?morbid obesity with a BMI of greater than 60, who was recently placed on Cipro for UTI recently. Over the last 24 hours, after about 3 days of Cipro he has become increasingly weak, unable to move himself around at home and also has had episodes of hallucinations and confusion. Came to the emergency department where he was found to have clinical and laboratory evidence of CHF with elevated BNP, wheezing and crackles in his lungs and also be significantly weak and unable to move under his own power out of the bed. Admitted to hospital for IV antibiotics, as his chest x-ray showed infiltrates and the initial thought was Cipro might be causing his hallucinations as there are case reports in the literature about this. He was also admitted for diuresis, further evaluation of CHF issues. Hospital Course Hospital Course: Patient was admitted. Hallucinations stopped after cessation of ciprofloxacin. He was placed on azithromycin and Rocephin for evidence of lung infiltrate and his urinary tract infection respectively. Previous culture from last week showed E. coli that was pansensitive to most antibiotics. He tolerated antibiotics well. Repeat urine and blood cultures have been negative. Echo showed evidence of significant diastolic dysfunction with minimally depressed ejection fraction. He responded very nicely to diuresis and lost a couple of pounds and creatinine improved as his Starling curve physiology improved. Patient was evaluated by PT, is max assist even to sitting up on the side of the bed because of his global weakness and his significant obesity. He was agreeable to going to skilled care facility for rehabilitation and a bed was found for him at the [facility] facility in [place]. Plan will be to transfer [facility] today. He will need the followin. He will need repeat CBC, BMP and BNP on Monday morning, September 21. 2. We will follow him on rounds on that day as well 3. He will need PT/OT evaluation. 4. He will need dietary evaluation for 2000-calorie diet for help with any kind of weight loss over the next several weeks to help with mobility but obviously we do not want protein insufficiency or electrolyte insufficiencies. 5. We will continue Lasix therapy until Monday. 6. Given CHF issues we will start low-dose Entresto therapy and watch blood pressure and electrolytes carefully as noted above. 7. He will need p.o. cefdinir 300 mg twice daily for the next 7 days to finish up treatment for UTI. Objective Vital signs: Temp Pulse Resp BP Pulse Ox 97.8 F 66 20 145/75 H 96 09/16/20 08:00 09/16/20 08:00 09/16/20 08:00 09/16/20 08:00 09/16/20 08:00 no acute distress, morbidly obese, chronically ill appearing - *Routine HEENT Exam Head: Present: normocephalic Eye: Present: EOMI, PERRL ENT: Present: mucous membranes moist - *Routine Neck Exam Present: supple - *Routine Respiratory Exam Present: CTA bilaterally - *Routine Cardiovascular Exam Present: RRR - *Routine Abdominal Exam Present: soft, normoactive bowel sounds. Absent: tenderness - *Routine Extremities Exam Present: edema. Absent: cyanosis, clubbing Comments: Brawny skin changes in both lower extremities. - *Routine Skin Exam Present: warm. Absent: rash - *Routine Neurological Exam Present: alert, oriented X3 No focal deficits but globally extremely weak. - Detailed Eye Exam Eyelids: Bilateral normal inspection Results Labs on day of discharge: Labs from last 24 hours 09/16/20 09/16/20 09/16/20 06:08 06:08 04:55 WBC 9.8 RBC 4.02 L Hgb 11.2 L Hct 34.8 L MCV 86.5 MCH 27.8 MCHC 32.1 RDW 14.7 Plt Count 366 MPV 7.4 Neut % (Auto) 73.6 Lymph % (Auto) 16.9 Foster % (Auto) 6.4 Eos % (A
--- NOTE | 2020-09-16 10:50 | PC.NURSE ---
CALLED REPORT TO WALESKA AT [facility].
== END 2020-09-16 12:04 | DRG 291 ==
LOC: ER 17:40 → 2ND 18:32
PROVIDERS: Internal Medicine Adolescent Medicine; Admitting Provider Internal Medicine Adolescent Medicine; Emergency Provider Emergency Medicine; PCP Nurse Practitioner Family; Visit Provider Internal Medicine Adolescent Medicine
DX: I13.0 Hypertensive heart and chronic kidney disease with heart failure and stage 1 through stage 4 chronic kidney disease, or unspecified chronic kidney disease (principal); J96.21 Acute and chronic respiratory failure with hypoxia; J18.9 Pneumonia, unspecified organism; I50.30 Unspecified diastolic (congestive) heart failure; E66.2 Morbid (severe) obesity with alveolar hypoventilation; Z68.44 Body mass index [BMI] 60.0-69.9, adult; N17.9 Acute kidney failure, unspecified; R44.1 Visual hallucinations; T36.8X5A Adverse effect of other systemic antibiotics, initial encounter; E11.22 Type 2 diabetes mellitus with diabetic chronic kidney disease; Z79.4 Long term (current) use of insulin; Z79.899 Other long term (current) drug therapy; N18.9 Chronic kidney disease, unspecified; J44.9 Chronic obstructive pulmonary disease, unspecified; E78.5 Hyperlipidemia, unspecified
CPT/HCPCS: 36415; 70450; 71045; 80048; 80053; 81001; 82803; 82962; 83605; 83735; 83880; 84484; 85007; 85025; 87040; 87070; 87077; 87086; 87088; 87186; 87205; 93005; 93306; 94640; 94760; 96365; 96366; 96375; 97110; 97162; 97166; 97530; 99284; J0456; U0003

== ENCOUNTER → 2020-09-26 08:49 | Outpatient (CLI) | payer MEDICARE, OTHER, SELFPAY ==
[2020-09-26 10:11] LABS: Chloride 99 mmol/L (98-107); Sodium 135 mmol/L (136-145)
[2020-09-26 10:14] LABS: Blood Urea Nitrogen 64 mg/dl (9-20); Estimated Glomerular Filt Rate 20 ml/min (>60); GFR (African American) 25 ML/MIN (>60)
[2020-09-26 10:15] LABS: Calcium 10.2 mg/dl (8.4-10.2); Carbon Dioxide 28 mmol/L (22.0-30.0); Glucose 130 mg/dl (74-100)
[2020-09-26 10:16] LABS: Potassium 5.9 mmoL/L (3.5-5.1)
== END ==
PROVIDERS: Visit Provider Internal Medicine Adolescent Medicine
DX: R79.89 Other specified abnormal findings of blood chemistry (principal)
CPT/HCPCS: 36415; 80048

== ENCOUNTER → 2020-10-01 13:53 | Outpatient (CLI) | payer MEDICARE, OTHER, SELFPAY ==
[2020-10-01 14:26] LABS: Chloride 101 mmol/L (98-107)
[2020-10-01 14:27] LABS: Potassium 5.6 mmoL/L (3.5-5.1); Sodium 136 mmol/L (136-145)
[2020-10-01 14:29] LABS: Blood Urea Nitrogen 51 mg/dl (9-20); Estimated Glomerular Filt Rate 21 ml/min (>60); GFR (African American) 26 ML/MIN (>60)
[2020-10-01 14:30] LABS: Anion Gap 13.6 mEq/L (5-15); Calcium 9.7 mg/dl (8.4-10.2); Carbon Dioxide 27 mmol/L (22.0-30.0); Glucose 61 mg/dl (74-100)
[2020-10-01 14:34] LABS: Basophils % 0.7 % (0.1-2.0); Eosinophils # 0.2 K/mm3 (0.0-0.4); Eosinophils % 2.8 % (0.1-12.0); Hemoglobin 10.9 g/dL (14.1-18.0); Lymphocytes # 1.8 K/mm3 (0.7-4.5); Lymphocytes % 30.2 % (10-50); Mean Corpuscular HGB Conc 34.2 g/dL (31.8-35.4); Mean Corpuscular Hemoglobin 28.6 pg (27.0-31.2); Mean Corpuscular Volume 83.5 fl (80-94); Mean Platelet Volume 7.2 fl (7.4-10.4); Monocytes # 0.5 K/mm3 (0.1-1.0); Monocytes % 8.7 % (1.7-9.3); Neutrophils # 3.4 K/mm3 (1.8-7.8); Neutrophils % 57.6 % (37.0-80.0); Platelet Count 279 K/mm3 (142-424); Red Blood Count 3.83 M/mm3 (4.60-6.20); Red Cell Distribution Width 14.9 % (11.5-17.5); White Blood Count 5.8 K/mm3 (4.8-10.8)
== END ==
PROVIDERS: Visit Provider Internal Medicine Adolescent Medicine
DX: N18.30 Chronic kidney disease, stage 3 unspecified (principal)
CPT/HCPCS: 80048; 80053; 85014; 85018; 85025

== ENCOUNTER → 2020-10-07 13:59 | Outpatient (CLI) | payer MEDICARE, OTHER, SELFPAY ==
[2020-10-07 14:20] LABS: Chloride 106 mmol/L (98-107); Sodium 139 mmol/L (136-145)
[2020-10-07 14:21] LABS: Potassium 5.2 mmoL/L (3.5-5.1)
[2020-10-07 14:23] LABS: Blood Urea Nitrogen 54 mg/dl (9-20); Estimated Glomerular Filt Rate 34 ml/min (>60); GFR (African American) 41 ML/MIN (>60)
[2020-10-07 14:24] LABS: Anion Gap 11.2 mEq/L (5-15); Calcium 9.2 mg/dl (8.4-10.2); Carbon Dioxide 27 mmol/L (22.0-30.0); Glucose 66 mg/dl (74-100)
[2020-10-07 14:28] LABS: Basophils % 0.5 % (0.1-2.0); Eosinophils # 0.2 K/mm3 (0.0-0.4); Eosinophils % 4.9 % (0.1-12.0); Hemoglobin 9.8 g/dL (14.1-18.0); Lymphocytes # 1.5 K/mm3 (0.7-4.5); Lymphocytes % 29.9 % (10-50); Mean Corpuscular HGB Conc 32.5 g/dL (31.8-35.4); Mean Corpuscular Volume 86.2 fl (80-94); Mean Platelet Volume 7.4 fl (7.4-10.4); Monocytes # 0.4 K/mm3 (0.1-1.0); Monocytes % 8.6 % (1.7-9.3); Neutrophils # 2.7 K/mm3 (1.8-7.8); Neutrophils % 56.1 % (37.0-80.0); Platelet Count 222 K/mm3 (142-424); Red Blood Count 3.48 M/mm3 (4.60-6.20); Red Cell Distribution Width 15.5 % (11.5-17.5); White Blood Count 4.9 K/mm3 (4.8-10.8)
== END ==
PROVIDERS: Visit Provider Internal Medicine Adolescent Medicine
DX: E11.9 Type 2 diabetes mellitus without complications (principal); Z79.4 Long term (current) use of insulin
CPT/HCPCS: 80048; 85025

== ENCOUNTER 2020-12-04 20:04 | Observation (INO) | payer MEDICARE, OTHER, SELFPAY ==
--- NOTE | 2020-12-04 19:42 | ECG_ITS ---
APPROVED REPORT Exam: Resting ECG HR:83 bpm ECG Measurements Heart Rate 83 AXES OR 238 P 58 QRSd 104 QRS -12 QT 364 T 72 QTc 427 Conclusion Sinus rhythm with 1st degree AV block with occasional and consecutive premature ventricular complexes and fusion complexes Abnormal ECG Electronically signed by : Scott Camarillo MD 12/05/2020 08:38:03
[2020-12-04 19:48] VITALS: BP 169/64; PULSE 76; RESP 20; TEMP 36.6; O2SAT 95; BMI 64.6
--- NOTE | 2020-12-04 20:18 | XR_ITS ---
PROCEDURE INFORMATION: Exam: XR Left Hip Exam date and time: 12/04/2020 8:18 PM Age: 65 years old Clinical indication: Other: Pain left hip unable to bear weight; Patient HX: Unable to bear weight pain left hip; Additional info: Fall 2 wk ago TECHNIQUE: Imaging protocol: XR Left hip. Views: 2 or 3 views hip with pelvis when performed. COMPARISON: No relevant prior studies available. FINDINGS: Bones/joints: Unremarkable. No acute fracture. Soft tissues: Unremarkable. Catheter noted. IMPRESSION: No acute findings.
[2020-12-04 20:47] LABS: Basophils % 0.4 % (0.1-2.0); Eosinophils # 0.1 K/mm3 (0.0-0.4); Eosinophils % 0.9 % (0.1-12.0); Hematocrit 34.3 % (42.0-52.0); Hemoglobin 10.2 g/dL (14.1-18.0); Lymphocytes % 11.9 % (10-50); Mean Corpuscular HGB Conc 29.7 g/dL (31.8-35.4); Mean Corpuscular Hemoglobin 27.3 pg (27.0-31.2); Mean Corpuscular Volume 91.9 fl (80-94); Mean Platelet Volume 8.1 fl (7.4-10.4); Monocytes # 0.5 K/mm3 (0.1-1.0); Monocytes % 5.6 % (1.7-9.3); Neutrophils % 81.2 % (37.0-80.0); Platelet Count 414 K/mm3 (142-424); Red Blood Count 3.73 M/mm3 (4.60-6.20); Red Cell Distribution Width 16.2 % (11.5-17.5); White Blood Count 8.6 K/mm3 (4.8-10.8)
[2020-12-04 20:53] LABS: Alanine Aminotransferase 17 U/L (12-78); Albumin Level 3.6 g/dl (3.5-5.0); Albumin/Globulin Ratio 0.8 (1.1-1.8); Alkaline Phosphatase 45 U/L (38-126); Anion Gap 11.8 mEq/L (5-15); Aspartate Amino Transferase 29 U/L (17-59); Bilirubin,Total 0.5 mg/dl (0.2-1.3); Blood Urea Nitrogen 73 mg/dl (9-20); Calcium 9.1 mg/dl (8.4-10.2); Carbon Dioxide 31 mmol/L (22.0-30.0); Chloride 99 mmol/L (98-107); Creatinine Clearance Estimated 22 mL/min (50-200); Estimated Glomerular Filt Rate 20 ml/min (>60); GFR (African American) 24 ML/MIN (>60); Globulin 4.7 g/dL (1.3-3.2); Glucose 123 mg/dl (74-100); Potassium 5.8 mmoL/L (3.5-5.1); Sodium 136 mmol/L (136-145); Total Protein,Serum 8.3 g/dl (6.3-8.2)
[2020-12-04 20:58] LABS: C-Reactive Protein 86.9 mg/L (0-4)
[2020-12-04 20:58] LABS: Microscopic, Urine URINE MICROSCOPIC (MICROSCOPIC)
[2020-12-04 21:00] VITALS: BP 120/98; PULSE 63; RESP 15; O2SAT 94
--- NOTE | 2020-12-04 21:10 | XR_ITS ---
PROCEDURE INFORMATION: Exam: XR Chest Exam date and time: 12/04/2020 9:10 PM Age: 65 years old Clinical indication: Shortness of breath; Patient HX: SOB possible fall TECHNIQUE: Imaging protocol: XR of the chest. Views: 4 or more views. COMPARISON: CR XR CHEST PORTABLE 09/13/2020 3:36 PM FINDINGS: Lungs: No focal consolidation. Pleural spaces: Unremarkable. No pleural effusion. No pneumothorax. Heart/Mediastinum: Heart appears enlarged as is the mediastinum. This is likely exaggerated by habitus and technique. Bones/joints: Unremarkable. IMPRESSION: No focal consolidation
[2020-12-04 21:11] LABS: Procalcitonin 0.334 ng/mL (0.0-2.0)
[2020-12-04 21:14] LABS: Appearance,Urine CLEAR (Clear); Bilirubin,Urine Negative (Negative); Blood, Urine Negative (Negative); Color,Urine YELLOW (Yellow); Glucose,Urine (UA) Negative (Negative); Ketones,Urine Negative (Negative); Leukocyte Esterase,Urine Negative (Negative); Nitrate,Urine Negative (Negative); PH,Urine 5.5 (5.0-8.5); Protein,Urine Negative (Negative); Urobilinogen,Urine 0.2 EU/dl (0.2)
[2020-12-04 21:21] LABS: Erythrocyte Sedimentation Rate > 140 mm/hr (0-20)
--- NOTE | 2020-12-04 21:33 | PC.NURSE ---
pt return to room.
[2020-12-04 22:00] VITALS: BP 104/60; PULSE 73; RESP 18; O2SAT 93
[2020-12-04 22:26] LABS: Coronavirus 19, PCR Not Detected (NotDetected); Influenza A, PCR Not Detected (NotDetected); Influenza B, PCR Not Detected (NotDetected)
[2020-12-04 23:00] VITALS: BP 108/48; PULSE 64; RESP 16; O2SAT 92
--- NOTE | 2020-12-04 23:16 | HMH.EDBACK ---
ED Disposition Clinical Impression: Lumbar radiculopathy, Morbid obesity with BMI of 60.0-69.9, adult, ALAN (acute kidney injury), Hyperkalemia Fall Qualifiers: Encounter type: initial encounter Qualified Code(s): W19.XXXA - Unspecified fall, initial encounter Diabetes mellitus Qualifiers: Diabetes mellitus type: type 1 Diabetes mellitus complication status: with other specified complication Qualified Code(s): E10.69 - Type 1 diabetes mellitus with other specified complication Disposition: Admitted as Observation Condition on Discharge: Fair - Critical Care Critical Care Time: No Attestation: On 12/04/20, the high probability of a clinically significant, sudden or life threatening deterioration of the following system(s) required my full and direct attention, intervention and personal management. The time I documented below is in addition to time spent performing reported procedures but includes the following listed in this critical care notation. Medical Decision Making - Medical Records Medical records reviewed: Yes: I reviewed the patient's medical records. - Jamal Inquiry Pt receiving controlled substance: No Vital Signs: 12/04/20 19:48 12/04/20 21:00 12/04/20 22:00 Temperature 97.9 F Temperature Source Oral Pulse Rate 63 73 Pulse Rate [Right] 76 Respiratory Rate 20 15 18 Blood Pressure 120/98 H 104/60 L Blood Pressure [Right Arm] 169/64 H Blood Pressure Mean [Right Arm] 99 Blood Pressure Source Manual Cuff/ Auscultation Blood Pressure Source [Right Arm] Automatic Cuff Blood Pressure Position Supine Blood Pressure Position [Right Arm] Supine 02 Sat by Pulse Oximetry 95 94 L 93 L Oxygen Delivery Method Room Air Room Air Room Air 12/04/20 23:00 Temperature Temperature Source Pulse Rate 64 Pulse Rate [Right] Respiratory Rate 16 Blood Pressure 108/48 L Blood Pressure [Right Arm] Blood Pressure Mean [Right Arm] Blood Pressure Source Blood Pressure Source [Right Arm] Blood Pressure Position Blood Pressure Position [Right Arm] 02 Sat by Pulse Oximetry 92 L Oxygen Delivery Method Room Air - Lab Data Lab results reviewed: Yes: I reviewed the patient's lab results. Lab Results 12/04/20 20:35: WBC 8.6, RBC 3.73 L, Hgb 10.2 L, Hct 34.3 L, MCV 91.9, MCH 27.3, MCHC 29.7 L, RDW 16.2, Plt Count 414, MPV 8.1, Neut % (Auto) 81.2 H, Lymph % (Auto) 11.9, Stephenson % (Auto) 5.6, Eos % (Auto) 0.9, Baso % (Auto) 0.4, Neut # (Auto) 7.0, Lymph # (Auto) 1.0, Stephenson # (Auto) 0.5, Eos # (Auto) 0.1, Baso # (Auto) 0.0, ESR > 140 H 12/04/20 20:35: Sodium 136, Potassium 5.8 H, Chloride 99, Carbon Dioxide 31 H, Anion Gap 11.8, BUN 73 H, Creatinine 3.20 H, Estimated Creat Clear 22, Estimated GFR 20 L, Est GFR ( Amer) 24 L, Glucose 123 H, Calcium 9.1, Total Bilirubin 0.5, AST 29, ALT 17, Alkaline Phosphatase 45, C-Reactive Protein 86.9 H, Total Protein 8.3 H, Albumin 3.6, Globulin 4.7 H, Albumin/Globulin Ratio 0.8 L, Procalcitonin 0.334 12/04/20 20:47: Urine Color Yellow, Urine Appearance Clear, Urine pH 5.5, Ur Specific Penfield 1.020, Urine Protein Negative, Urine Glucose (UA) Negative, Urine Ketones Negative, Urine Blood Negative, Urine Nitrate Negative, Urine Bilirubin Negative, Urine Urobilinogen 0.2, Ur Leukocyte Esterase Negative, Urine RBC None, Urine WBC None, Ur Squamous Epith Cells None, Urine Bacteria None 12/04/20 22:20: SARS-CoV-2 (PCR) Not detected, Influenza A Untype (PCR) Not detected, Influenza Type B (PCR) Not detected Result diagrams: 12/04/20 20:35 12/04/20 20:35 Orders (Tests/Meds): ED MEDICATIONS Generic Name Dose Route Start Last Admin Trade Name Freq PRN Reason Stop Dose Admin Sodium Chloride 1,000 mls @ 999 mls/hr 12/04/20 21:30 12/04/20 21:30 Sod Chlor 0.9% 1000ml Bag IV 12/04/20 22:30 999 mls/hr .Q1H1M SELMA Administration Discontinued Medications Generic Name Dose Route Start Last Admin Trade Name Freq PRN Reason Stop Dose Admin Methylpredniso
[2020-12-04 23:31] VITALS: BP 101/55; PULSE 76; RESP 11; O2SAT 93
[2020-12-05] VITALS (9 sets, daily range): BP systolic 101–156; BP diastolic 55–74; PULSE 62–88; RESP 11–22; TEMP 36.4–36.7; O2SAT 92–99; BMI 64.1
[2020-12-05 00:25] LABS: Magnesium 2.2 mg/dl (1.6-2.3)
[2020-12-05 00:36] LABS: NT Pro Brain Natriuretic Pep. 349 pg/mL (0-125)
[2020-12-05 00:43] LABS: T4 (Thyroxine) 9.3 ug/dl (5.53-11.0)
[2020-12-05 00:57] LABS: Thyroid Stimulating Hormone 1.58 uIU/mL (0.465-4.68)
--- NOTE | 2020-12-05 00:59 | PC.NURSE ---
Attempted to call report at 0023. RN was assisting a co-worker and stated she would call back when finished
--- NOTE | 2020-12-05 01:22 | PC.NURSE ---
Report called to RAFAEL Riojas at this time.
--- NOTE | 2020-12-05 01:31 | PC.NURSE ---
Attempted to give report @ 0015 but accepting Nurse unavailable. Attempted to call report 2nd time @ 0058 and nurse assignment changed, they will call back. @0118 gave report to Emily Brunner RN and they are preparing the bariatric bed at this time.
--- NOTE | 2020-12-05 01:39 | PC.NURSE ---
@ 9102 Angelina Brunner RN called to state staff are preparing the bariatric bed
--- NOTE | 2020-12-05 02:29 | PC.NURSE ---
PT ARRIVED TO FLOOR VIA STRETCHER FROM ED W/STAFF AT 0230
[2020-12-05 05:59] LABS: POC Glucose,Bedside 93 (70-110)
[2020-12-05 06:36] LABS: Basophils % 0.1 % (0.1-2.0); Eosinophils # 0.1 K/mm3 (0.0-0.4); Eosinophils % 0.5 % (0.1-12.0); Hematocrit 31.7 % (42.0-52.0); Hemoglobin 9.8 g/dL (14.1-18.0); Lymphocytes # 0.9 K/mm3 (0.7-4.5); Mean Corpuscular Hemoglobin 27.9 pg (27.0-31.2); Monocytes # 0.1 K/mm3 (0.1-1.0); Monocytes % 1.1 % (1.7-9.3); Neutrophils # 8.4 K/mm3 (1.8-7.8); Neutrophils % 89.2 % (37.0-80.0); Platelet Count 337 K/mm3 (142-424); Red Blood Count 3.53 M/mm3 (4.60-6.20); Red Cell Distribution Width 16.2 % (11.5-17.5); White Blood Count 9.4 K/mm3 (4.8-10.8)
[2020-12-05 06:51] LABS: MANUAL DIFFERENTIAL MANUAL DIFFERENTIAL (MANUAL DIFF)
[2020-12-05 06:55] LABS: Chloride 105 mmol/L (98-107); Potassium 5.8 mmoL/L (3.5-5.1); Sodium 139 mmol/L (136-145)
[2020-12-05 06:58] LABS: Blood Urea Nitrogen 70 mg/dl (9-20); Creatinine Clearance Estimated 29 mL/min (50-200); Estimated Glomerular Filt Rate 26 ml/min (>60); GFR (African American) 32 ML/MIN (>60)
[2020-12-05 06:59] LABS: Anion Gap 13.8 mEq/L (5-15); Calcium 8.9 mg/dl (8.4-10.2); Carbon Dioxide 26 mmol/L (22.0-30.0); Glucose 96 mg/dl (74-100)
--- NOTE | 2020-12-05 07:41 | PC.WOUNDNOTE ---
stage 2 ulcer noted on left buttocks approximately 0.5in x 0.5in
--- NOTE | 2020-12-05 08:02 | HMH.HP ---
*Admission Date: 12/05/20 *Chief complaint: weakness *History of present illness: Mr. Kerns is a 65-year-old white male who suffers from extreme morbid obesity with a BMI of greater than 60, debility, CKD, CHF, pickwickian syndrome, and diabetes. He presented to the ER last night due to worsening debility and back pain. Patient states he has not been eating or drinking very well for the past week after sustaining a fall a little over 2 weeks ago. describes the fall as him getting weak and counter sliding down onto his bottom. He has been more or less bedbound for the past 2 weeks, taking a few steps to go to the bathroom but otherwise spending most of his time in his hospital bed at home. Of note, was admitted to [facility] for 8 days in September after a UTI. Has been at home since with home health until a few weeks ago, he had met his goals with activity and was able to ambulate to the bathroom. Reestablished with home health earlier this week per and patient's report. Back pain had significantly worsened over the past week. Denies any neuropathy, numbness or tingling. Sore mainly in his lower back/sacral area. On assessment in the ER, found to have acute on chronic kidney injury, some elevated inflammatory markers. No focal source of infection. No elevated white count. Vitals normal. Admitted for IV fluids, serial labs, and possible PT evaluation. Imaging of pelvis and head negative for fractures or injury. Feeling better this morning after IV fluids. at bedside feeding him this morning. Reviewed labs, some improvement in kidney function but not back to baseline. White count still normal. Denies nausea, confusion, chest pain, shortness of breath. Wearing baseline oxygen. Does complain of slight tremor [facility] History I have reviewed the patient's past medical history: Yes Medical History: Reports:: Congestive Heart Failure, Chronic Obstructive Pulmonary Disease (COPD), Coronary Artery Disease, Diabetes Mellitus Type 2, Hyperlipidemia, Hypertension, Lung Disease, MRSA Denies:: Cancer, Diabetes Mellitus Type 1, Internal Pacemaker, Seizures *Have you ever received a pneumonia vaccine?: No *Have you received a flu vaccine this season?: No Other Medical History: Reports: Arthritis. Denies: Blood Transfusion Reaction Laterality Cases: Bilateral: Other Other Surgeries: Yes: Cardiac Catheterization, Colonoscopy, Other. No: Pacemaker Amputation: No Fractures: No - *Social History Last grade of school completed: 9th or 10th Smoking Status: Former smoker Tobacco Type: cigarettes # Packs/Day (cigarettes): 1 #Yrs smoked (if former smoker): 35 Alcohol Intake: former Alcohol Intake Frequency:: holidays/special occasions only *Occupational Status:: disabled Household Members: family *Travel in the last 8 weeks: None Family Hx:: Cancer, Diabetes, Hyperlipidemia, Hypertension Review of Systems - Review of Systems Review of systems:: pertinent systems reviewed and negative unless documented below (14 point review of systems performed, pertinent positives and negatives as per HPI) - *Neurologic Denies headache(s), Denies seizure-like activity Meds Home Medications Medication Instructions Recorded Confirmed Type amlodipine 10 mg tablet 10 mg PO DAILY 09/26/17 12/04/20 History carvedilol 25 mg tablet 25 mg PO BID 09/26/17 12/04/20 History loratadine 10 mg capsule 10 mg PO DAILY 09/26/17 12/04/20 History omeprazole 40 mg capsule,delayed 40 mg PO DAILY 09/26/17 12/04/20 History release rosuvastatin 40 mg tablet 40 mg PO HS 09/26/17 12/04/20 History tamsulosin 0.4 mg capsule 0.4 mg PO HS 09/26/17 12/04/20 History dulaglutide 1.5 mg/0.5 mL 1.5 mg SQ WEEKLY 11/22/18 12/04/20 History subcutaneous pen injector Albuterol Sulfate [Proair Hfa] 2 puffs IH Q6HP PRN 09/13/20 12/04/20 History Fluticasone/Umeclidin/Vilanter 1 puff IH DAILY 09/13/20 12/05/20 History [Trelegy Ellipta 100-62.5-25] I
[2020-12-05 09:17] LABS: Hypochromasia 1+; Lymphocytes % 10 % (10-50); Monocytes % 1 % (2-9); Neutrophils % 89 % (42-76); Platelet Estimate Normal; Total Cells Counted 100
[2020-12-05 10:54] LABS: POC Glucose,Bedside 126 (70-110)
--- NOTE | 2020-12-05 12:07 | HMH.PHAINT ---
MEDICATION RECONCILIATION COMPLETE USING LIST FROM MD OFFICE AND EXTERNAL PHARMACY FILL HISTORY.
--- NOTE | 2020-12-05 12:08 | HMH.PHAVTE ---
[facility] Pharmacy VTE Monitoring - Patient Demographics Admission date: 12/05/20 Report Date: 12/05/20 Time: 12:08 Allergies/Adverse Reactions: Patient Allergies gemfibrozil Allergy (Intermediate, Verified 11/22/18 08:22) I-RASH, NAUSEA, HIVES Height: 1.73 m Weight: 192 kg Patient Problems: Current Active Problems CHF (congestive heart failure) (Chronic) Lumbar radiculopathy (Acute) Fall (Acute) ALAN (acute kidney injury) (Acute) Hyperkalemia (Acute) Debility (Acute) Pickwickian syndrome (Chronic) Morbid obesity with BMI of 60.0-69.9, adult (Chronic) Diabetes mellitus (Chronic) - VTE Risk Labs: VTE Related Lab Results Hgb 9.8 g/dL (14.1-18.0) L 12/05/20 06:00 Hct 31.7 % (42.0-52.0) L 12/05/20 06:00 Plt Count 337 K/mm3 (142-424) 12/05/20 06:00 BUN 70 mg/dl (9-20) H 12/05/20 06:00 Creatinine 2.50 mg/dl (0.66-1.25) H D 12/05/20 06:00 Estimated Creat Clear 29 mL/min (50-200) 12/05/20 06:00 Was VTE Risk Assessment Performed: Yes VTE Score: 8 VTE Risk Level: Moderate Risk Clinical Trial Participant: No - Prophylaxis VTE Prophylaxis Ordered?: Yes Types of VTE Prophylaxis: TEDS Knee High Location of Applied Device: Bilateral Lower Extremeties
[2020-12-05 16:26] LABS: POC Glucose,Bedside 233 (70-110)
[2020-12-05 16:38] LABS: Basophils % 0.1 % (0.1-2.0); Eosinophils % 0.1 % (0.1-12.0); Hematocrit 30.3 % (42.0-52.0); Hemoglobin 9.2 g/dL (14.1-18.0); Lymphocytes # 0.7 K/mm3 (0.7-4.5); Lymphocytes % 7.6 % (10-50); Mean Corpuscular HGB Conc 30.3 g/dL (31.8-35.4); Mean Corpuscular Hemoglobin 27.6 pg (27.0-31.2); Mean Corpuscular Volume 90.8 fl (80-94); Mean Platelet Volume 7.8 fl (7.4-10.4); Monocytes # 0.4 K/mm3 (0.1-1.0); Monocytes % 3.6 % (1.7-9.3); Neutrophils # 8.5 K/mm3 (1.8-7.8); Neutrophils % 88.7 % (37.0-80.0); Platelet Count 323 K/mm3 (142-424); Red Blood Count 3.34 M/mm3 (4.60-6.20); Red Cell Distribution Width 16.1 % (11.5-17.5); White Blood Count 9.6 K/mm3 (4.8-10.8)
[2020-12-05 16:40] LABS: MANUAL DIFFERENTIAL MANUAL DIFFERENTIAL (MANUAL DIFF)
[2020-12-05 16:45] LABS: Ammonia < 9 umol/L (9-30)
[2020-12-05 17:38] LABS: Anisocytosis 1+; Hypochromasia 2+; Lymphocytes % 5 % (10-50); Monocytes % 1 % (2-9); Neutrophils % 92 % (42-76); Platelet Estimate Normal; Total Cells Counted 100
[2020-12-06 04:00] VITALS: BP 114/62; PULSE 76; RESP 19; TEMP 36.7; O2SAT 99
[2020-12-06 05:00] VITALS: BMI 61.7
--- NOTE | 2020-12-06 05:20 | PC.NURSE ---
Patient is A&Ox4. Patient is bedfast. Patient jumps around on oxygen use between 2-4LNC; he has worn 2LNC this shift. Patient had complaints of back pain and left hip pain; gave medications per MAR tried repositioning in bed and no relief was obtained. MD notified, new orders where received. VSS, call light within reach, will continue to monitor.
[2020-12-06 05:25] LABS: POC Glucose,Bedside 230 (70-110)
--- NOTE | 2020-12-06 06:00 | US_ITS ---
PROCEDURE INFORMATION: Exam: US Abdomen, Limited; Right Upper Quadrant Exam date and time: 12/06/2020 6:00 AM Age: 65 years old Clinical indication: Nausea and other: Diabetes, extreme obesity 407 lbs , bedfast; Additional info: Assess liver, cirrhosis? TECHNIQUE: Imaging protocol: US abdomen. Real time ultrasound with image documentation. Limited exam focused on the right upper quadrant. COMPARISON: No relevant prior studies available. FINDINGS: Liver: The liver measures 17.6 cm in sagittal dimensions. Normal directional flow of the portal vein. Gallbladder: The gallbladder is seen and unremarkable. Common bile duct: Normal. No stones. No dilation. Pancreas: Limited evaluation of the pancreas is unremarkable. IMPRESSION: Unremarkable limited right upper quadrant ultrasound.
[2020-12-06 07:39] LABS: Eosinophils % 0.1 % (0.1-12.0); Hematocrit 30.3 % (42.0-52.0); Hemoglobin 9.5 g/dL (14.1-18.0); Lymphocytes # 0.6 K/mm3 (0.7-4.5); Lymphocytes % 7.9 % (10-50); Mean Corpuscular HGB Conc 31.3 g/dL (31.8-35.4); Mean Corpuscular Volume 89.3 fl (80-94); Mean Platelet Volume 7.8 fl (7.4-10.4); Monocytes # 0.4 K/mm3 (0.1-1.0); Monocytes % 5.3 % (1.7-9.3); Neutrophils # 6.4 K/mm3 (1.8-7.8); Neutrophils % 86.7 % (37.0-80.0); Platelet Count 342 K/mm3 (142-424); Red Blood Count 3.39 M/mm3 (4.60-6.20); White Blood Count 7.3 K/mm3 (4.8-10.8)
[2020-12-06 07:41] LABS: Chloride 105 mmol/L (98-107); Potassium 4.9 mmoL/L (3.5-5.1); Sodium 139 mmol/L (136-145)
[2020-12-06 07:43] LABS: Alanine Aminotransferase 15 U/L (12-78); Aspartate Amino Transferase 26 U/L (17-59); Blood Urea Nitrogen 47 mg/dl (9-20); Creatinine Clearance Estimated 40 mL/min (50-200); Estimated Glomerular Filt Rate 38 ml/min (>60); GFR (African American) 46 ML/MIN (>60)
[2020-12-06 07:44] LABS: Albumin Level 3.2 g/dl (3.5-5.0); Albumin/Globulin Ratio 0.8 (1.1-1.8); Alkaline Phosphatase 53 U/L (38-126); Anion Gap 10.9 mEq/L (5-15); Bilirubin,Total 0.2 mg/dl (0.2-1.3); Calcium 8.5 mg/dl (8.4-10.2); Carbon Dioxide 28 mmol/L (22.0-30.0); Globulin 3.8 g/dL (1.3-3.2); Glucose 206 mg/dl (74-100)
[2020-12-06 07:45] LABS: Magnesium 2.1 mg/dl (1.6-2.3)
[2020-12-06 08:00] VITALS: BP 119/63; PULSE 74; RESP 20; TEMP 36.5; O2SAT 98
[2020-12-06 08:14] LABS: MANUAL DIFFERENTIAL MANUAL DIFFERENTIAL (MANUAL DIFF)
--- NOTE | 2020-12-06 08:44 | HMH.DCSUM ---
General - General Admission date:: 12/05/20 Discharge date: 12/06/20 HPI HPI: Mr. Kerns is a 65-year-old white male who suffers from extreme morbid obesity with a BMI of greater than 60, debility, CKD, CHF, pickwickian syndrome, and diabetes. He presented to the ER last night due to worsening debility and back pain. Patient states he has not been eating or drinking very well for the past week after sustaining a fall a little over 2 weeks ago. describes the fall as him getting weak and counter sliding down onto his bottom. He has been more or less bedbound for the past 2 weeks, taking a few steps to go to the bathroom but otherwise spending most of his time in his hospital bed at home. Of note, was admitted to [facility] for 8 days in September after a UTI. Has been at home since with home health until a few weeks ago, he had met his goals with activity and was able to ambulate to the bathroom. Reestablished with home health earlier this week per and patient's report. Back pain had significantly worsened over the past week. Denies any neuropathy, numbness or tingling. Sore mainly in his lower back/sacral area. On assessment in the ER, found to have acute on chronic kidney injury, some elevated inflammatory markers. No focal source of infection. No elevated white count. Vitals normal. Admitted for IV fluids, serial labs, and possible PT evaluation. Imaging of pelvis and head negative for fractures or injury. Feeling better this morning after IV fluids. at bedside feeding him this morning. Reviewed labs, some improvement in kidney function but not back to baseline. White count still normal. Denies nausea, confusion, chest pain, shortness of breath. Wearing baseline oxygen. Does complain of slight tremor Hospital Course Hospital Course: Morbidly obese 65-year-old male with multiple comorbidities. Admitted for back pain, ALAN, debility. -During hospitalization, his kidney function returned to baseline, creatinine 1.8 on day of discharge. Responded well to fluid resuscitation. -Back pain determined to be secondary to immobility, bedbound status, obesity. Initiated on steroids for 5-day course and given short course of opiates to go home with. Counseled patient that his back pain will not improve as long as he is sedentary. Patient already has home health established, encouraged physical therapy and mobility daily to help alleviate some of his pain. Imaging (able to be attained within the confines of his morbid obesity and limits of modalities available) showed no acute fractures in the pelvis/hip. -Patient declined physical therapy while admitted, was clear on having no intent to go to a assisted or skilled care facility for therapy. Therefore shared decision making led to decision to discharge home as his acute issues with kidney injury had resolved. Additionally, obtained ultrasound of right upper quadrant to look at his liver. This is based on him having a tremor on presentation as well as spider angiomas on his chest. Ammonia level was normal. Ultrasound still pending at time of discharge. Tremor improved with cessation of baclofen. Medication/care changes at time of discharge: Stop baclofen, stop amlodipine, resume Lasix daily, ambulate as tolerated; dexamethasone for 5 days, opiates available if pain is severe. Discussion with patient and about how much his obesity truly complicates his care and treatment. Strong concern for poor prognosis moving forward even in light of his kidney function improving. Examined on day of discharge. Medically stable for discharge home. Objective Vital signs: Temp Pulse Resp BP Pulse Ox 97.7 F 74 20 119/63 98 12/06/20 08:00 12/06/20 08:00 12/06/20 08:00 12/06/20 08:00 12/06/20 08:00 Narrative: - Constitutional no acute distress, morbidly obese, chronically ill appearing; Bedbound - *Routine HEEN
--- NOTE | 2020-12-06 10:21 | HMH.PHAINT ---
MEDICATION RECONCILIATION COMPLETE. DISCUSSED ADDITION OF PERCOCET, FINASTERIDE, DEXAMETHASONE, AND ZOFRAN. ADES AND HOW TO TAKE THE MEDICATIONS EXPLAINED.
[2020-12-06 10:34] LABS: Eosinophils % 1 % (0-3); Lymphocytes % 7 % (10-50); Monocytes % 2 % (2-9); Neutrophils % 88 % (42-76); Total Cells Counted 100
[2020-12-06 10:35] LABS: Hypochromasia 2+; Platelet Estimate Normal
[2020-12-07 01:01] LABS: POC Glucose,Bedside 251 (70-110)
[2020-12-07 01:01] LABS: POC Glucose,Bedside 246 (70-110)
--- NOTE | 2020-12-07 11:37 | SW/DCPLANNER ---
SENT A ORDER FOR RESUMPTION OF CARE ON THIS PATIENT... PATIENT IS ESTABLISHED WITH [facility] AND WILL CONTINUE WITH HOME HEALTH THAT WILL START TODAY...
== END 2020-12-06 13:08 | disposition home health service (06) ==
LOC: ER 21:05 → 2ND 12-05 00:03
PROVIDERS: Admitting Provider Internal Medicine Adolescent Medicine; Emergency Provider Emergency Medicine; PCP Internal Medicine Adolescent Medicine; Visit Provider Internal Medicine Adolescent Medicine
DX: N17.9 Acute kidney failure, unspecified (principal); Z79.4 Long term (current) use of insulin; E66.2 Morbid (severe) obesity with alveolar hypoventilation; Z68.44 Body mass index [BMI] 60.0-69.9, adult; N18.9 Chronic kidney disease, unspecified; Z91.81 History of falling; I50.9 Heart failure, unspecified; R53.2 Functional quadriplegia; Z79.899 Other long term (current) drug therapy; L89.151 Pressure ulcer of sacral region, stage 1; Z20.822 Contact with and (suspected) exposure to COVID-19; E11.22 Type 2 diabetes mellitus with diabetic chronic kidney disease; I13.0 Hypertensive heart and chronic kidney disease with heart failure and stage 1 through stage 4 chronic kidney disease, or unspecified chronic kidney disease
CPT/HCPCS: G0378; 36415; 71045; 73502; 76705; 80048; 80053; 81001; 82140; 82962; 83735; 83880; 84145; 84436; 84443; 85007; 85025; 85651; 86140; 93005; 96365; 96375; 99285; J2405; U0003